=== PATIENT | female | born 1935 | race Caucasian/White ===

== ENCOUNTER 2021-11-17 11:06 | Inpatient (IN) | payer OTHER ==
--- OUTSIDE RECORDS SUMMARY | 2021-11-17 11:14 | XMS REPORT | Continuity of Care Document ---
:1935 Author Organization [facility] t Address [address] [place] [address] Dr. Wilson [address] [place] [id number] Care Team Providers Name Role Phone Gege HWANG Attending Clinician Unavailable Payers Payer Name Policy Type Policy Number Effective Date Expiration Date S pola MEDICARE PART A [id number] 2002 \T\ B 00:00:00 Problems This patient has no known problems. Allergies, Adverse Reactions, Alerts Allergy Allergy Status Severity Reaction(s) Onset Inactive Treating Comm ents Source Name Type Date Date Clinician NO KNOWN Drug Active [facility] ALLERGIE Class [facility] Medications This patient has no known medications. Procedures This patient has no known procedures. Encounters Start End Encounter Admission Attending Care Care Encounter Source Date/Time Date/Time Type Type Clinicians Facility Department ID 2020-12-29 2020-12-29 Outpatient [facility] [id number] [facility] 15:00:00 15:00:00 [id number] [facility] 2020-12-29 2020-12-29 Outpatient Diego HWANG [facility] [id number] [facility] 15:00:00 15:00:00 STEPHEN [facility] Results This patient has no known results.
[2021-11-17] MEDS ORDERED: NA CHLORIDE 0.9% 500 ML ONE (11:33)
--- NOTE | 2021-11-17 12:26 | RAD REPORT ---
EXAM DESCRIPTION: Wendie Single View11/17/2021 11:44 am CLINICAL HISTORY: cough COMPARISON: 2016 FINDINGS: Mild prominence of the interstitial pattern within the lungs bilaterally. The heart is mildly to moderately enlarged IMPRESSION: These findings may indicate mild CHF
[2021-11-17] MEDS ORDERED: MORPHINE 2 MG/ML SYR ONE (12:28)
[2021-11-17] MEDS ORDERED: ONDANSETRON 4 MG/2 ML VIAL ONE (12:28)
[2021-11-17 12:45] LABS: Absolute Lymphocytes (CBC) 0.3 K/uL (0.7-4.9); Hematocrit 39.6 % (36.0-45.0); Lymphocytes % 2.6 % (15.3-44.8); MPV 9.7 fL (7.6-11.3); RBC Red Blood Cell Count 4.25 M/uL (3.86-4.86)
[2021-11-17 13:01] LABS: Bilirubin Total 2.5 mg/dL (0.2-1.0); Protein, Total 8.4 g/dL (6.4-8.2)
[2021-11-17 13:03] LABS: Potassium 3.4 mmol/L (3.5-5.1)
[2021-11-17 13:15] LABS: Blood Morphology Comment NOT SEEN (NOT SEEN); Platelet Estimate ADEQ
[2021-11-17 13:38] LABS: SARS-COV-2 RT PCR NEGATIVE (NEGATIVE)
--- NOTE | 2021-11-17 13:46 | RAD REPORT ---
EXAM DESCRIPTION: CT - Abdomen Pelvis W Contrast - 11/17/2021 1:24 pm CLINICAL HISTORY: Abdominal pain COMPARISON: none. TECHNIQUE: Computed axial tomography of the abdomen pelvis was obtained. 100 cc Isovue-300 was admin istered intravenously. Oral contrast was not requested which limits evaluation of bowel. All CT scans are performed using dose optimization technique as appropriate and may include automated exposure control or mA/KV adjustment according to patient size. FINDINGS: The liver, spleen, pancreas adrenals unremarkable. Small renal cysts. Atherosclerotic disease. A 2 centimeter duodenal diverticulum. Diverticula stem from the colon without evidence of diverticulitis. No adnexal mass Borderline gallbladder distention IMPRESSION: Borderline gallbladder distention
--- NOTE | 2021-11-17 15:05 | RAD REPORT ---
EXAM DESCRIPTION: US - Abdomen Exam Limited - 11/17/2021 2:46 pm CLINICAL HISTORY: Abdominal pain. COMPARISON: None. FINDINGS: Borderline gallbladder distention. Gallbladder wall is not thickened. Two 3 millimeter ech ogenic structures appear adherent to the gallbladder wall. These probably represent polyps. Two additional echogenic structures within the gallbladder which appear mobile. No posterior shadowing is seen. The biliary tree is normal caliber. IMPRESSION: Borderline gallbladder distention Two 3 millimeter echogenic structures appear adherent to the gallbladder wall. These probably represe nt polyps. Two additional small echogenic structures within the gallbladder may represent sludge or stones which did not shadow secondary to a combination of their small size and technical factors
[2021-11-17 15:53] LABS: Urine Blood 1+ (Negative); Urine Glucose Negative (Negative); Urine Protein 1+ (Negative); Urine Specific Gravity <=1.005 (1.005-1.030); Urine pH 5.5 (5.0-7.0)
[2021-11-17 15:57] LABS: Troponin High Sensitivity 9.2 pg/mL (<58.9)
--- NOTE | 2021-11-17 15:57 | EDPHYS ---
Physician Documentation [facility] Name: Lena Martínez Age: 86 yrs Sex: Female : 1935 Arrival Date: 11/17/2021 Time: 11:12 Bed 16 Private MD: ED Physician Azam Torres HPI: 11/17 11:22 This 86 yrs old Female presents to ER via EMS with complaints of Fever, Vomiting. rn 11:22 The patient reports fever, not measured (subjective). Onset: The symptoms/episode rn began/occurred yesterday. Modifying factors: there are no obvious modifying factors. Associated signs and symptoms: Pertinent positives: chills, cough, nausea, shortness of breath, vomiting. Severity of symptoms: At their worst the symptoms were mild in the emergency department the symptoms are unchanged. The patient has not experienced similar symptoms in the past. The patient has not recently seen a physician. Patient reports not feeling well for the last 2 days, positive fever, threw up once today, positive shortness of breath. No abdominal pain. No chest pain.. Historical: - Allergies: 11:14 Sulfa (Sulfonamide Antibiotics); bp - PMHx: 11:14 Atrial fibrillation; bp - Immunization history:: Client reports receiving the 2nd dose of the Covid vaccine. - Social history:: Smoking status: Patient denies any tobacco usage or history of. - Family history:: not pertinent. - Hospitalizations: : No recent hospitalization is reported. ROS: 11:22 Constitutional: Positive for fever Eyes: Negative for injury, pain, redness, and shift supervisor rn, Neck: Negative for injury, pain, and swelling, Cardiovascular: Negative for chest pain, palpitations, and edema, Respiratory: Positive for cough and shortness of breath Abdomen/GI: Negative for abdominal pain, positive for nausea and vomiting x1 Back: Negative for injury and pain, : Negative for injury, bleeding, discharge, and swelling, MS/Extremity: Negative for injury and deformity, Skin: Negative for injury, rash, and discoloration, Neuro: Negative for headache, numbness, tingling, and seizure. Exam: 11:22 Constitutional: This is a well developed, well nourished patient who is awake, alert, rn and in no acute distress. Head/Face: Normocephalic, atraumatic. Eyes: Periorbital areas with no swelling, redness, or edema. Cardiovascular: Tachycardic, irregular. No pulse deficits. Respiratory: Mild tachypnea, no retractions or nasal flaring. Abdomen/GI: Soft, non-tender, nondistended Skin: Warm, dry MS/ Extremity: Pulses equal, no cyanosis. Neurovascular intact. Full, normal range of motion. Neuro: Awake and alert, GCS 15 15:59 ECG was reviewed by the Attending Physician. rn Vital Signs: 11:12 BP 149 / 90; Pulse 100; Resp 20; Temp 100.7; Pulse Ox 90% on R/A; bp 11:20 BP 182 / 89; Pulse 122; Resp 18; Temp 98.6; Pulse Ox 98% ; Pain 0/10; cb5 12:14 BP 159 / 72; Pulse 112; Resp 18; Temp 98.6; Pain 3/10; cb5 14:05 BP 144 / 64; Pulse 113; Resp 16; Pulse Ox 97% ; Pain 0/10; cb5 MDM: 11:15 Patient medically screened. rn 15:43 Differential diagnosis: viral Infection, bacterial infection, URI, bronchitis, rn pneumonia UTI, acalculous cholecystitis, pulmonary edema, CHF, afib with RVR. Data reviewed: vital signs, nurses notes, lab test result(s), EKG, radiologic studies, CT scan, plain films, ultrasound, and as a result, I will admit patient. Counseling: I had a detailed discussion with the patient and/or guardian regarding: the historical points, exam findings, and any diagnostic results supporting the discharge/admit diagnosis, lab results, radiology results, the need for further work-up and treatment in the hospital. Response to treatment: the patient's symptoms have mildly improved after treatment, and as a result, I will admit patient. Admission orders: after a detailed discussion of the patient's condition and case, the admit orders are written by me. ED course: Will admit to Dr. Torres for further care and w/u. CT and u/s shows mild gallbladder distension but no PCF or definitive stones. Repeat exam still neg for abd tenderness, neg colunga. Will admit for Afib/RVR with mild CHF. Has elevated lactate and procalcitonin, will also obtain surgical consultation in hospital. . 11/17 11:18 Order name: Basic Metabolic Panel; Complete Time: 14:08 11/17 11:18 Order name: CBC with Diff; Complete Time: 14: 11/17 11:18 Order name: Hepatic Function; Complete Time: 14: 11/17 11:18 Order name: Lipase; Complete Time: 14: 11/17 11:18 Order name: COVID-19/FLU A+B (Document "Date of Onset" if Symptomatic); Complete Time: rn 14:11/17 11:18 Order name: Procalcitonin; Complete Time: 14: rn 11/17 11:18 Order name: Lactate; Complete Time: 14: 11/17 11:18 Order name: Blood Culture Adult (2) rn 11/17 11:18 Order name: Urine Culture rn 11/17 11:18 Order name: Urine Microscopic Only; Complete Time: 16: 11/17 13:15 Order name: Manual Differential; Complete Time: 14: [facility] 11/17 15:33 Order name: Troponin High Sensitivity; Complete Time: 16: 11/17 15:33 Order name: BNP; Complete Time: 16: 11/17 15:53 Order name: Urine Dipstick-Ancillary; Complete Time: 16: [facility] 11/17 11:18 Order name: IV Saline Lock; Complete Time: 12: 11/17 11:18 Order name: Labs collected and sent; Complete Time: 12: 11/17 11:18 Order name: XRAY Chest (1 view); Complete Time: 14: 11/17 11:18 Order name: O2 Per Protocol; Complete Time: : rn 11/17 11:18 Order name: Cardiac monitoring; Complete Time: : rn 11/17 11:18 Order name: Urine Dipstick-Ancillary (obtain specimen); Complete Time: 15:43 rn 11/17 12:26 Order name: CT Abd/Pelvis - IV Contrast Only; Complete Time: 14: 11/17 14:10 Order name: US Abdomen Limited; Complete Time: 15: 11/17 15:17 Order name: EKG; Complete Time: 15:18 11/17 16:47 Order name: CONS Physician Consult [facility] 11/17 12:31 Order name: Labs - recollect needed: recollect lactic / bagged incorrectly/ spilled eb everywhere and timed out.; Complete Time: 13:16 11/17 15:17 Order name: EKG - Nurse/Tech; Complete Time: 15:43 rn EC:59 Rate is 109 beats/min. Rhythm is irregularly irregular. QRS [place] is Normal. NV interval rn is normal. QRS interval is normal. QT interval is normal. No Q waves. T waves are Normal in leads II, V3, V4, V5, V6. No ST changes noted. Clinical impression: Atrial Fibrillation. Interpreted by me. Reviewed by me. Administered Medications: 11:45 Drug: NS 0.9% 500 ml Route: IV; Rate: bolus; Site: right antecubital; cb5 12:30 Drug: Zofran (Ondansetron) 4 mg Route: IVP; Site: right antecubital; cb5 12:30 Drug: morphine 2 mg Route: IVP; Site: right antecubital; cb5 16:22 Drug: Metoprolol TARTRATE 50 mg Route: PO; cb5 Disposition Summary: 11/17/21 15:56 Hospitalization Ordered Hospitalization Status: Inpatient Admission rn Provider: Jw Torres rn Location: Telemetry/MedSurg (Inpatient) rn Condition: Stable rn Problem: new rn Symptoms: have improved rn Bed/Room Type: Standard rn Room Assignment: 210(11/17/21 16:50) eb Diagnosis - Persistent atrial fibrillation - With RVR rn - Dyspnea, unspecified rn - UTI/ Urinary tract infection, site not specified rn - Hypoxemia rn Forms: - Medication Reconciliation Form rn - SBAR form rn Signatures: Dispatcher [employer] EDMS Azam Torres MD MD rn Peltier, Brian RN RN Mallorie Brooke Colleen, RN RN cb5 Corrections: (The following items were deleted from the chart) 15:34 11:22 Constitutional: This is a well developed, well nourished patient who is awake, rn alert, and in no acute distress. Head/Face: Normocephalic, atraumatic. Eyes: Periorbital areas with no swelling, redness, or edema. Cardiovascular: Tachycardic, regular. No pulse deficits. Respiratory: Mild tachypnea, no retractions or nasal flaring. Abdomen/GI: Soft, non-tender, nondistended Skin: Warm, dry MS/ Extremity: Pulses equal, no cyanosis. Neurovascular intact. Full, normal range of motion. Neuro: Awake and alert, GCS 15 rn 16:50 15:56 rn eb
--- NOTE | 2021-11-17 15:57 | ER ---
Nurse's Notes [facility] Name: Lena Martínez Age: 86 yrs Sex: Female : 1935 Arrival Date: 11/17/2021 Time: 11:12 Bed 16 Private MD: Diagnosis: Persistent atrial fibrillation-With RVR;Dyspnea, unspecified;UTI/ Urinary tract infection, site not specified;Hypoxemia Presentation: 11/17 11:12 Chief complaint: EMS states: FEVER, MALAISE AND VOMITING. Coronavirus screen: fever, bp vomiting. Ebola Screen: No symptoms or risks identified at this time. Initial Sepsis Screen: Does the patient meet any 2 criteria? HR > 90 bpm. No. Patient's initial sepsis screen is negative. Does the patient have a suspected source of infection? No. Patient's initial sepsis screen is negative. Risk Assessment: Do you want to hurt yourself or someone else? Patient reports no desire to harm self or others. Onset of symptoms was November 17, 2021. Care prior to arrival: Medication(s) given: Phenergan, 12.5 mg, IV initiated. 22 GA, in the left hand. 11:12 Method Of Arrival: EMS: [facility] bp 11:12 Acuity: АННА 3 bp Triage Assessment: 11:14 General: Appears in no apparent distress. comfortable, Behavior is cooperative, bp appropriate for age, anxious. Pain: Complains of pain in head. EENT: No deficits noted. Neuro: Level of Consciousness is awake, alert, obeys commands, Oriented to Appropriate for age. Cardiovascular: Rhythm is atrial fibrillation. Respiratory: Reports shortness of breath. GI: Reports nausea, vomiting. : No signs and/or symptoms were reported regarding the genitourinary system. Derm: No deficits noted. Musculoskeletal: No deficits noted. Historical: - Allergies: 11:14 Sulfa (Sulfonamide Antibiotics); bp - PMHx: 11:14 Atrial fibrillation; bp - Immunization history:: Client reports receiving the 2nd dose of the Covid vaccine. - Social history:: Smoking status: Patient denies any tobacco usage or history of. - Family history:: not pertinent. - Hospitalizations: : No recent hospitalization is reported. Screenin:20 Abuse screen: Denies injuries from another. Has been threatened or abused. Nutritional bp screening: No deficits noted. Tuberculosis screening: No symptoms or risk factors identified. Fall Risk None identified. 11:21 Abuse screen: Denies threats or abuse. Denies injuries from another. Nutritional cb5 screening: No deficits noted. Tuberculosis screening: No symptoms or risk factors identified. Assessment: 11:20 General: SEE TRIAGE NOTE. bp 12:30 Reassessment: pt informed nurse she is having back pain, 06/05, informed M.D. See new cb5 orders. 13:00 Pain: Complains of pain in back Pain currently is 2 out of 10 on a pain scale. cb5 Alleviated by pt responded well to morphine. 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 cb5 15:05 Reassessment: Patient denies pain at this time. Patient states feeling better. cb5 17:02 Reassessment: Patient denies pain at this time. cb5 Vital Signs: 11:12 BP 149 / 90; Pulse 100; Resp 20; Temp 100.7; Pulse Ox 90% on R/A; bp 11:20 BP 182 / 89; Pulse 122; Resp 18; Temp 98.6; Pulse Ox 98% ; Pain 0/10; cb5 12:14 BP 159 / 72; Pulse 112; Resp 18; Temp 98.6; Pain 3/10; cb5 14:05 BP 144 / 64; Pulse 113; Resp 16; Pulse Ox 97% ; Pain 0/10; cb5 ED Course: 11:12 Patient arrived in ED. bp 11:14 Triage completed. bp 11:14 Arm band placed on. bp 11:15 Azam Torres MD is Attending Physician. rn 11:19 Margot Vogel, ELLIS is Primary Nurse. cb5 11:20 Patient has correct armband on for positive identification. Bed in low position. Call bp light in reach. Side rails up X2. Adult w/ patient. 11:20 Maintain EMS IV. Dressing intact. Gauge \\T\\ site: 22 G R HAND. bp 11:22 Patient has correct armband on for positive identification. Bed in low position. Call cb5 light in reach. Side rails up X2. 11:22 No provider procedures requiring assistance completed. cb5 11:44 XRAY Chest (1 view) In Process Unspecified. EDMS 12:08 Lipase Sent. cb5 12:08 Hepatic Function Sent. cb5 12:08 CBC with Diff Sent. cb5 12:09 Basic Metabolic Panel Sent. cb5 12:09 COVID-19/FLU A+B (Document "Date of Onset" if Symptomatic) Sent. cb5 12:09 Lactate Sent. cb5 12:09 Procalcitonin Sent. cb5 12:09 Blood Culture Adult (2) Sent. cb5 13:24 CT Abd/Pelvis - IV Contrast Only In Process Unspecified. EDMS 14:46 US Abdomen Limited In Process Unspecified. EDMS 15:43 Urine Culture Sent. cb5 15:43 Urine Microscopic Only Sent. cb5 15:54 BNP Sent. cb5 15:54 Troponin High Sensitivity Sent. cb5 15:56 Jw Torres MD is Hospitalizing Provider. rn 17:03 Report given to Pardeep Ramirez cb5 Administered Medications: 11:45 Drug: NS 0.9% 500 ml Route: IV; Rate: bolus; Site: right antecubital; cb5 12:30 Drug: Zofran (Ondansetron) 4 mg Route: IVP; Site: right antecubital; cb5 12:30 Drug: morphine 2 mg Route: IVP; Site: right antecubital; cb5 16:22 Drug: Metoprolol TARTRATE 50 mg Route: PO; cb5 Outcome: 15:56 Decision to Hospitalize by Provider. rn 17:16 Patient left the ED. cb5 Signatures: Dispatcher [employer] Azam Bonilla MD MD rn Peltier, Brian, RN RN bp Boman, Colleen, RN RN cb5
[2021-11-17 16:05] LABS: Urine Bacteria >50 /HPF (<20); Urine RBC <5 /HPF (NONE SEEN)
[2021-11-17] MEDS ORDERED: METOPROLOL TAR 50 MG TAB ONE (16:23)
--- NOTE | 2021-11-17 16:57 | P.HP ---
Certification for Inpatient Patient admitted to: Inpatient With expected LOS: >2 Midnights Practitioner: I am a practitioner with admitting privileges, knowledge of patient current condition, hospital course, and medical plan of care. Services: Services provided to patient in accordance with Admission requirements found in Title 42 Section 412.3 of the Code of Federal Regulations Patient History Date of Service: 11/17/21 Reason for admission: afib rvr, nausea, fever History of Present Illness: 86yo F, PMH: Afib on eliquis, hypothyroidism, hypertension presents to the ED due to sudden onset of chills, shakes, fever this morning. She states she went to the bathroom due to nausea and she threw up, associated with some pain between her shoulder blades/slight on the right side. She was also feeling more short of breath/dyspneic on exertion. They called EMS, and as they were putting her on the stretcher she had another episode of emesis, states this was greenish in color. Denies constipation, denies diarrhea. She typically has 34 bowel movements a day. She has been a little bit more short of breath/dyspneic on exertion over the last 3-4 days as well. She states it is typical for her, that after walking for "a while" her A. fib acts up and she gets short of breath and has to sit down and rest. She denies any dysuria, no increased urinary frequency, no cloudy or foul- smelling urine. She reports a history of recurrent UTIs, last one over 2 years ago. She also reports she has been told she may have some CHF component in the past, but is unsure. In the ED, she was noted to be febrile to 100.7, A. fib with RVR up to 130s, with borderline hypertension. 90% on room air. Troponin negative, BNP slightly elevated, CXR with mild bilateral pulmonary opacities, lactic acidosis, and elevated procalcitonin. Mildly elevated bilirubin, distended gallbladder on CT and ultrasound, without other features of cholecystitis. No leukocytosis. UA was sent and nitrite/leukoesterase positive, micro pending. ED physician requested admission for further management/evaluation of her A. fib, possible UTI, and gallbladder. Allergies pregabalin [From Lyrica] Allergy (Verified 12/06/11 08:37) drooping in face area Sulfa (Sulfonamide Antibiotics) [Sulfa(Sulfonamide Antibiotics)] Allergy (Verified 12/06/11 08:35) joint/tongue swelling - Past Medical/Surgical History -: A. fib on Eliquis -: Hypothyroid -: Hypertension Past Surgical History: Unable to obtain - Family History Mother -: Cancer (Lung) - Social History Smoking Status: Never smoker Alcohol use: No Place of Residence: Home Review of Systems 10-point ROS is otherwise unremarkable Physical Examination - Physical Exam General: Alert, In no apparent distress, Oriented x3 HEENT: Mucous membr. moist/pink, Sclerae nonicteric Respiratory: Diminished (At bases bilaterally, otherwise clear) Cardiovascular: Edema (Trace bilateral pedal edema), Irregular heart rate/rhythm Gastrointestinal: Soft and benign, Non-distended, No tenderness Musculoskeletal: No erythema, No tenderness Integumentary: No significant lesion Neurological: Normal speech, Normal strength at 5/5 x4 extr, Normal affect - Studies Laboratory Data (last 24 hrs) 11/17/21 11:45: WBC 9.90, Hgb 13.0, Hct 39.6, Plt Count 236 11/17/21 11:45: Sodium 135 L, Potassium 3.4 L, BUN 15, Creatinine 1.19, Glucose 128 H, Total Bilirubin 2.5 H, AST 22, ALT 27, Alkaline Phosphatase 93, Lipase 67 L Assessment and Plan - Advance Directives Does patient have a Living Will: Yes Does patient have a Durable POA for Healthcare: Yes Physician Review Additional Text: Problem List Distended gallbladder Bacteruria, possible UTI Lactic acidosis Afib RVR, chronic afib on eliquis Hypothyroid HTN fever, afib, vomiting x2 (with greenish emesis) distended gallbladder on U/S and CT, no RUQ tenderness on exam, did have R shoulder blade / between shoulder blade pain mild elevated tbili consult general surgery Urine with bacteruria and nitrite/leuk est positive, concerning for UTI. patient denies any symptoms, but has h/o frequent UTIs in the past, has been >2 yrs since last one Zosyn to cover abdominal and urine pathogens patient didn't take home meds this morning, restart home metoprolol once confirmed, IV metop as needed Cardiology consulted full liquids tonight, ADAT continue home eliquis tonight check thyroid function VTE: eliquis Code: DNR Dispo: anticipate dc home in ~2 days Time Spent Managing Pts Care (In Minutes): 60
[2021-11-17] MEDS ORDERED: ONDANSETRON 4 MG/2 ML VIAL IV PRN (17:40)
[2021-11-17 17:42] VITALS: BMI 30.4
[2021-11-17] MEDS: PIPER TAZO 3.375 GM in NA CHLORIDE 0.9% 100 ML IV SCH (18:36)
[2021-11-17] MEDS ORDERED: METOPROLOL TAR 50 MG TAB PO SCH (21:00)
--- NOTE | 2021-11-17 21:03 | P.CNS ---
Date of Consult: 11/17/21 PC: This 36-year-old female presented to the emergency room with severe abdominal pain nausea and vomiting for diagnosis and treatment. HPC: Patient has been experiencing abdominal pain since earlier today. Describes it as extremely severe located in her back. Associated with green vomiting. States she has not felt that well this last week or so. PSHx: Lung surgery for granuloma PMHx: Atrial fibrillation Social Hx: Allergic to sulfa Sys R: No cough, wheeze, but has had some shortness of breath. Finds that she is not able to walk as far as she used to. Appetite has not been that good this last month or so. No change in bowel habit. At the current time however she feels fine with no pain as were talking. O/E: Awake alert vital signs are stable, afebrile and comfortable at the moment HEENT: Nonicteric Chest: Air entry equal bilaterally Abd: Soft nontender no masses no guarding or rebound [place]: Intact Data: Has possible gallstones seen on ultrasound. Also duodenal diverticuli. Impression: Episode of probable biliary colic appears to have resolved for now Plan: The patient is stable at the moment. She is feeling much improved since she has been here. She will most likely be discharged soon. Would recommend cardiac clearance, and visit with a radio equipment repairer [this is the patient's request] as well as a check-in with Dr. Gao. Should she decide to have surgery at a later date we will be glad to provide that service. She says she will check in with me in about a month to let me know how she is doing.
[2021-11-17] MEDS: APIXABAN 2.5 MG TABLET PO SCH (21:54)
[2021-11-18] MEDS: PIPER TAZO 3.375 GM in NA CHLORIDE 0.9% 100 ML IV SCH ×3 (00:37→18:58)
--- NOTE | 2021-11-18 05:55 | P.PN ---
Date of Service: 11/18/21 Subjective: no acute events fatigued, feels slightly better Blood cultures positive for gram-negative rods Upper back pain resolved HR: 90s-115s overnight ROS: 10 point ROS as noted above, otherwise negative Physical exam General: Alert, fatigued appearing, Oriented x3 HEENT: Mucous membr. moist/pink, Sclerae nonicteric Respiratory: Diminished (At bases bilaterally, otherwise clear) Cardiovascular: Irregular heart rate/rhythm, no edema Gastrointestinal: Soft and benign, Non-distended, No tenderness Musculoskeletal: No erythema, No tenderness Problem List Sepsis, without severe sepsis/shock secondary to UTI, GNR bacteremia Afib RVR, chronic afib on eliquis Distended gallbladder, possible episode of biliary colic Hypothyroid HTN fever, afib, vomiting x2 (with greenish emesis) distended gallbladder on U/S and CT, no RUQ tenderness on exam, did have R shoulder blade / between shoulder blade pain mild elevated tbili empirically on Zosyn to cover abdominal and urine pathogens consulted general surgery, possible episodes of biliary colic, f/u outpatient Patient denied urine symptoms, however urine with bacteriuria, and preliminary blood showing gram-negative rods A. fib with better rate control, continue home metoprolol Cardiology consulted continue home eliquis VTE: eliquis Code: DNR Dispo: anticipate dc home in ~2 days Time Spent Managing Pts Care (In Minutes): 35
[2021-11-18] MEDS ORDERED: METOPROLOL XL 100 MG TAB PO SCH (06:00)
[2021-11-18 06:30] LABS: Absolute Lymphocytes (CBC) 0.7 K/uL (0.7-4.9); Hematocrit 35.6 % (36.0-45.0); Lymphocytes % 5.4 % (15.3-44.8); MPV 9.3 fL (7.6-11.3); RBC Red Blood Cell Count 3.77 M/uL (3.86-4.86)
[2021-11-18] MEDS: LEVOTHYROXINE SOD 0.1 MG TAB PO SCH (06:30)
[2021-11-18] MEDS: METOPROLOL XL 100 MG TAB PO SCH (06:30)
[2021-11-18 06:47] LABS: Albumin 2.4 g/dL (3.4-5.0); Bilirubin Total 1.4 mg/dL (0.2-1.0); Magnesium 2.4 mg/dL (1.8-2.4); Potassium 3.4 mmol/L (3.5-5.1); Thyroid Stimulating Hormone 0.928 uIU/mL (0.360-3.740)
[2021-11-18] MEDS ORDERED: POTASSIUM CL SA 10 MEQ TAB PO ONE (06:57)
[2021-11-18] MEDS: APIXABAN 2.5 MG TABLET PO SCH ×2 (09:00→20:27)
[2021-11-18] MEDS: NA CHLORIDE 0.9% 1,000 ML IV SCH ×2 (10:24→20:28)
[2021-11-19] MEDS: PIPER TAZO 3.375 GM in NA CHLORIDE 0.9% 100 ML IV SCH ×3 (02:32→16:05)
[2021-11-19 05:46] LABS: Absolute Lymphocytes (CBC) 0.7 K/uL (0.7-4.9); Hematocrit 32.4 % (36.0-45.0); MPV 9.2 fL (7.6-11.3); RBC Red Blood Cell Count 3.45 M/uL (3.86-4.86)
--- NOTE | 2021-11-19 06:06 | P.PN ---
Date of Service: 11/19/21 Subjective: Improving, denies any back pain Feeling better Still minimal appetite Heart rate improved Reports some shortness of breath overnight, and states she has been short of breath even before this episode ROS: 10 point ROS as noted above, otherwise negative Physical exam General: Alert, fatigued appearing, Oriented x3 HEENT: Mucous membr. moist/pink, Sclerae nonicteric Respiratory: Diminished (At bases bilaterally, otherwise clear) Cardiovascular: Irregular heart rate/rhythm, no edema Gastrointestinal: Soft and benign, Non-distended, No tenderness Musculoskeletal: No erythema, No tenderness Problem List Sepsis, without severe sepsis/shock secondary to UTI, GNR bacteremia Afib RVR, chronic afib on eliquis Distended gallbladder, possible episode of biliary colic Hypothyroid HTN fever, afib, vomiting x2 (with greenish emesis) prior to admission, with mild elevated tbili distended gallbladder on U/S and CT, no RUQ tenderness on exam, did have R shoulder blade / between shoulder blade pain consulted general surgery, possible episodes of biliary colic, f/u outpatient empirically on Zosyn to cover abdominal and urine pathogens Patient denied urine symptoms, however urine with bacteriuria, and preliminary blood showing gram-negative rods, ID consulted A. fib with better rate control, continue home metoprolol Cardiology consulted - continue home metoprolol/eliquis VTE: eliquis Code: DNR Dispo: anticipate dc home in ~1-2 days may need PICC IV antibiotics on discharge Time Spent Managing Pts Care (In Minutes): 35
[2021-11-19] MEDS: LEVOTHYROXINE SOD 0.1 MG TAB PO SCH (06:07)
[2021-11-19 06:11] LABS: Magnesium 2.4 mg/dL (1.8-2.4); Potassium 3.8 mmol/L (3.5-5.1)
[2021-11-19] MEDS ORDERED: POTASSIUM CL SA 10 MEQ TAB PO ONE (09:00)
[2021-11-19] MEDS: APIXABAN 2.5 MG TABLET PO SCH ×2 (09:58→21:14)
[2021-11-19] MEDS: METOPROLOL XL 100 MG TAB PO SCH (09:58)
[2021-11-19] MEDS: NA CHLORIDE 0.9% 1,000 ML IV SCH (10:04)
--- NOTE | 2021-11-19 11:15 | CON ---
Date of Consultation: 11/19/2021 Reason For Consultation: Rapid atrial fibrillation. Subjective: Ms. Martíenz is 86. She is very well known to me from previous office visits. She has a h istory of hypertension, chronic atrial fibrillation, hypothyroidism. She does take Eliquis, metoprol ol, Lotrel, Synthroid at home. Came in with UTI, was found to have gram-negative bacteremia, atrial fibrillation initially was rapid rate 130 after treatment for her UTI. She is now running between 90 and has no cardiac symptoms. Past Medical History: As stated above. Allergies: SHE IS ALLERGIC TO SULFA AND NEURONTIN. Review of Systems: Negative. Social History: Negative. Family History: Negative. Medications: Listed earlier. Physical Examination: General: She is pleasant, alert and oriented x3. No acute distress. No symptoms. Vital Signs: Atrial fibrillation, rate of 104. Vital signs are otherwise stable. She is afebrile. HEENT: Negative. Neck: Supple with no bruit. Chest: Clear to auscultation and percussion. Cardiac: Revealed atrial fibrillation. Abdomen: Benign. Extremities: Revealed no clubbing, cyanosis, or edema. Diagnostic Data: Her EKG showed rapid atrial fibrillation. Creatinine is 1.33, hemoglobin 10.4, pot assium 3.8. BNP was 5685. Urinalysis is positive for UTI. Impression And Plan: 1.Chronic atrial fibrillation with rapid response now because of the infection. Continue beta-block ers. Continue Eliquis. Continue urinary tract infection treatment. 2.Hypertension, well controlled, on metoprolol and Lotrel. 3.Hypothyroidism, controlled, on Synthroid. 4.Mild anemia. 5.Mild renal insufficiency. 6.Elevated BNP secondary to demand ischemia from her urinary tract infection and atrial fibrillation . If her heart rate becomes fast, I will give IV metoprolol as needed or IV digoxin as needed. Othe rwise, no change in therapy. The case was discussed with Dr. Torres. No need for cardiac workup at t his point. I will see her in the office when she goes home. BYRON/LORELEI Voice ID: [id number] Report ID: [id number]
--- NOTE | 2021-11-19 18:51 | P.CNS ---
Date of Consult: 11/19/21 Chief Complaint: afib rvr, nausea, fever History of Present Illness: Is a 86-year-old female with a past medical history of A. fib on Eliquis, hypothyroidism, hypertension who presented to the emergency room secondary to feeling unwell with chills, shakes, and fever reported that morning. Patient states that she went to the bathroom due to nausea and also reported some pain between her shoulder blades/right side. Patient states that she was also feeling shortness of breath/dyspnea on exertion. Currently on 2 L oxygen via nasal cannula. Blood cultures taken on 11/17 grew gram-negative rods in 4 out of 4 bottles, awaiting full culture report. Urine culture obtained on 11/17 growing E. coli. Repeat blood cultures obtained on 11/18 show no growth at [address] abdomen pelvis showed borderline gallbladder distention, no other acute renal pathology noted. Chest x-ray showed mild congestive heart failure pattern. 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 She also states that she was diagnosed wi th COPD. She currently denies nausea/vomiting/diarrhea/shortness of breath/chest pain. Allergies pregabalin [From Lyrica] Allergy (Verified 12/06/11 08:37) drooping in face area Sulfa (Sulfonamide Antibiotics) [Sulfa(Sulfonamide Antibiotics)] Allergy (Verified 12/06/11 08:35) joint/tongue swelling Home Medications: Amlodipine Besylate/Benazepril [Amlodipine-Benazepril 10-20 mg] 1 tab PO DAILY 11/17/21 Apixaban [Eliquis] 2.5 tab PO BID 11/17/21 Levothyroxine Sodium 1 tab PO DAILY 11/17/21 Metoprolol Succinate 1 tab PO DAILY 11/17/21 - Past Medical/Surgical History -: A. fib on Eliquis -: Hypothyroid -: Hypertension -: lung lobectomy - Left lower lobe - Family History Mother Medical History: Cancer - Social History Alcohol use: No Place of Residence: Home Review of Systems 10-point ROS is otherwise unremarkable Physical Examination Temp Pulse Resp BP Pulse Ox 97.7 F 104 H 18 142/71 H 94 11/19/21 16:00 11/19/21 16:00 11/19/21 16:00 11/19/21 16:00 11/19/21 16:00 General: Alert, In no apparent distress, Oriented x3 HEENT: Normocephalic Neck: 2+ carotid pulse no bruit Respiratory: Clear to auscultation bilaterally, Normal air movement Cardiovascular: No edema, Irregular heart rate/rhythm Gastrointestinal: Normal bowel sounds, Soft and benign Conclusions/Impression: Antibiotics Zosyn Start: 11/17 Assessment/plan Urosepsis Blood cultures obtained 11/17 grew gram-negative rods in 4-4 bottles, source of infection urine. Urine culture growing E. coli. Recommend treating with IV antibiotics for 3 to 4 days then de-escalating to oral antibiotic to complete a total antibiotic duration of 7 days. Kassy rebolledo CHF COPD Hypothyroidism -Medical management per primary team Plan of care discussed with Dr. Ruddy Garcia for consultation.
[2021-11-19] MEDS ORDERED: PNEUMOCOCCAL VACCINE 0.5 ML IMVAC ONE (20:00)
[2021-11-19] MEDS ORDERED: INFLUENZA VACCINE (for 6+ mo) 0.5 ML DOSE IMVAC ONE (20:00)
[2021-11-20] MEDS: PIPER TAZO 3.375 GM in NA CHLORIDE 0.9% 100 ML IV SCH ×3 (00:54→16:09)
[2021-11-20 05:38] LABS: Absolute Lymphocytes (CBC) 0.9 K/uL (0.7-4.9); Hematocrit 32.2 % (36.0-45.0); Lymphocytes % 12.7 % (15.3-44.8); MPV 9.2 fL (7.6-11.3); RBC Red Blood Cell Count 3.43 M/uL (3.86-4.86)
[2021-11-20 06:04] LABS: Potassium 3.8 mmol/L (3.5-5.1)
[2021-11-20] MEDS: LEVOTHYROXINE SOD 0.1 MG TAB PO SCH (06:04)
--- NOTE | 2021-11-20 07:24 | RAD REPORT ---
EXAM DESCRIPTION: RAD - Chest Single View - 11/20/2021 6:17 am CLINICAL HISTORY: SOB, hypoxia COMPARISON: Portable November 17 TECHNIQUE: AP portable chest image was obtained 11/20/2021 6:17 am . FINDINGS: Interstitial markings are prominent. There is some patchy airspace opacification is well. No new dense consolidation or mass seen. Lung parenchymal pattern is not clearly different from the an study. Heart size is prominent but not clearly different. Rotation accentuates the heart size and widens the mediastinum. Central vasculature is not clearly different. No pneumothorax or enlarging pleural effu tariq. Delete select IMPRESSION: Interstitial and patchy alveolar opacities primarily in the lower lung [place]. Pattern i s not clearly different from November 17. Cardiac silhouette is enlarged. Prominent vasculature noted. Pattern is stable when adjusting for rot ation artifact.
[2021-11-20] MEDS: METOPROLOL XL 100 MG TAB PO SCH (10:28)
[2021-11-20] MEDS: APIXABAN 2.5 MG TABLET PO SCH ×2 (10:28→21:24)
--- NOTE | 2021-11-20 11:06 | PN ---
Date of Progress Note: 11/20/2021 Ms. Corley was seen because of rapid atrial fibrillation, chronic atrial fibrillation. She is on beta -yassine. She is on Eliquis. She has UTI with gram-negative bacteremia that is being treated. Infe ctious Disease is involved. She has hypertension, mild anemia and mild renal insufficiency. Hyperte nsion that is well controlled. Slightly elevated BNP secondary to demand ischemia. Today her heart rate is only 80. She remains in atrial fibrillation. ID is seeing her. O2 saturation is 93% on 2 L . Her white count is 7.30. Again, continue present regimen. She is a do not resuscitate. No cardi ac workup necessary at this point. I will be available for questions if the need arises. BYRON/EVELYNL Voice ID: [id number] Report ID: [id number]
--- NOTE | 2021-11-20 11:42 | P.PN ---
Subjective Date of Service: 11/20/21 Chief Complaint: afib rvr, nausea, fever Seen and examined at bedside, denies nausea/vomiting/diarrhea. Review of Systems 10-point ROS is otherwise unremarkable Physical Examination - Vital Signs Temperature: 97.5 F Blood Pressure: 140/70 Pulse: 20 Respirations: 20 Pulse Ox (%): 96 - Studies Laboratory Last Values WBC 9.90 K/uL (4.3-10.9) 11/17/21 11:45 RBC 4.25 M/uL (3.86-4.86) 11/17/21 11:45 Hgb 13.0 g/dL (12.0-15.0) 11/17/21 11:45 Hct 39.6 % (36.0-45.0) 11/17/21 11:45 MCV 93.1 fL (80-100) 11/17/21 11:45 MCH 30.7 pg (27.0-35.0) 11/17/21 11:45 MCHC 32.9 g/dL (32.0-36.0) 11/17/21 11:45 RDW 15.6 % (12.1-15.2) H 11/17/21 11:45 Plt Count 236 K/uL (152-406) 11/17/21 11:45 MPV 9.7 fL (7.6-11.3) 11/17/21 11:45 Neutrophils % 96.1 % (41.7-73.7) H 11/17/21 11:45 Lymphocytes % 2.6 % (15.3-44.8) L 11/17/21 11:45 Monocytes % 1.0 % (3.3-12.3) L 11/17/21 11:45 Eosinophils % 0.0 % (0-4.4) 11/17/21 11:45 Basophils % 0.3 % (0-1.3) 11/17/21 11:45 Absolute Neutrophils 9.5 K/uL (1.8-8.0) H 11/17/21 11:45 Segmented Neutrophils 97 % (40-80) H 11/17/21 11:45 Absolute Lymphocytes 0.3 K/uL (0.7-4.9) L 11/17/21 11:45 Lymphocytes 2 % (15-42) L 11/17/21 11:45 Monocytes 1 % (0-10) 11/17/21 11:45 Absolute Monocytes 0.1 K/uL (0.1-1.3) 11/17/21 11:45 Absolute Eosinophils 0.0 K/uL (0-0.5) 11/17/21 11:45 Absolute Basophils 0.0 K/uL (0-0.5) 11/17/21 11:45 Platelet Estimate Adeq 11/17/21 11:45 Clumped Platelets Few 11/17/21 11:45 Morphology Comment Not seen (NOT SEEN) 11/17/21 11:45 Sodium 135 mmol/L (136-145) L 11/17/21 11:45 Potassium 3.4 mmol/L (3.5-5.1) L 11/17/21 11:45 Chloride 105 mmol/L (98-107) 11/17/21 11:45 Carbon Dioxide 21 mmol/L (21-32) 11/17/21 11:45 BUN 15 mg/dL (7-18) 11/17/21 11:45 Creatinine 1.19 mg/dL (0.55-1.3) 11/17/21 11:45 Estimated GFR 43 mL/min (=/>90) L 11/17/21 11:45 Glucose 128 mg/dL (74-106) H 11/17/21 11:45 Lactic Acid 3.8 mmol/L (0.4-2.0) H 11/17/21 12:42 Calcium 8.6 mg/dL (8.5-10.1) 11/17/21 11:45 Total Bilirubin 2.5 mg/dL (0.2-1.0) H 11/17/21 11:45 Direct Bilirubin 1.0 mg/dL (0-0.2) H 11/17/21 11:45 AST 22 U/L (15-37) 11/17/21 11:45 ALT 27 U/L (12-78) 11/17/21 11:45 Alkaline Phosphatase 93 U/L (45-117) 11/17/21 11:45 Troponin I High Sens 9.20 pg/mL (<58.9) 11/17/21 11:45 NT-Pro-B Natriuret Pep 5685 pg/mL (<450) H 11/17/21 11:45 Serum Total Protein 8.4 g/dL (6.4-8.2) H 11/17/21 11:45 Albumin 3.0 g/dL (3.4-5.0) L 11/17/21 11:45 Globulin 5.4 g/dL (2.3-3.5) H 11/17/21 11:45 Albumin/Globulin Ratio 0.6 (1.1-1.8) L 11/17/21 11:45 Lipase 67 U/L (73-393) L 11/17/21 11:45 Procalcitonin 0.80 ng/mL (<0.050) H 11/17/21 11:45 Urine pH 5.5 (5.0-7.0) 11/17/21 15:50 Ur Specific [place] <=1.005 (1.005-1.030) 11/17/21 15:50 Glucose (UA)(Auto) Negative (Negative) 11/17/21 15:50 Urine Ketones Negative (Negative) 11/17/21 15:50 Urine Blood 1+ (Negative) H 11/17/21 15:50 Urine Nitrite Positive (Negative) H 11/17/21 15:50 Ur Leukocyte Esterase 1+ (Negative) H 11/17/21 15:50 Urine RBC <5 /HPF (NONE SEEN) 11/17/21 15:40 Urine WBC >50 /HPF (<5) H 11/17/21 15:40 Ur Squamous Epith Cells <5 /HPF (NONE SEEN) 11/17/21 15:40 Urine Bacteria >50 /HPF (<20) H 11/17/21 15:40 Urine Culture Reflexed Reflexed 11/17/21 15:40 Urine Total Protein 1+ (Negative) H 11/17/21 15:50 Influenza Type A RNA Negative (NEGATIVE) 11/17/21 12:00 Influenza Type B RNA Negative (NEGATIVE) 11/17/21 12:00 SARS-CoV-2 RNA (RT-PCR) Negative (NEGATIVE) 11/17/21 12:00 Microbiology Data (last 24 hrs): 11/17/21 12:05 Blood - Blood Aerobic Blood Culture - Final Gram Neg Gustavo Escherichia Coli 11/17/21 12:05 Blood - Blood Blood Culture Gram Stain - Final 11/17/21 12:05 Blood - Blood Anaerobic Blood Culture - Final Gram Neg Gustavo Escherichia Coli 11/17/21 12:05 Blood - Blood Gram Stain - Final 11/17/21 11:45 Blood - Blood Aerobic Blood Culture - Final Escherichia Coli 11/17/21 11:45 Blood - Blood Blood Culture Gram Stain - Final 11/17/21 11:45 Blood - Blood Anaerobic Blood Culture - Final Escherichia Coli 11/17/21 11:45 Blood - Blood Gram Stain - Final 11/17/21 15:40 Clean Catch Urine [place] Count - Final >100,000 CFU/ML. 11/17/21 15:40 Clean Catch Urine - Final Escherichia Coli Assessment And Plan - Plan Physical exam: General: Alert, In no apparent distress, Oriented x3 HEENT: Normocephalic Neck: 2+ carotid pulse no bruit Respiratory: Clear to auscultation bilaterally, Normal air movement Cardiovascular: No edema, Irregular heart rate/rhythm Gastrointestinal: Normal bowel sounds, Soft and benign Conclusions/Impression: Antibiotics Zosyn Start: 11/17 Assessment/plan Urosepsis Blood cultures obtained 11/17 grew gram-negative rods in 4-4 bottles, source of infection urine. Urine culture growing E. coli. Recommend treating with IV antibiotics for 3 to 4 days then de-escalating to oral antibiotic to complete a total antibiotic duration of 7 days. Obtaining baseline EKG, if QTC interval within normal range we will transition patient to oral ciprofloxacin for 3 days. Kassy rebolledo CHF COPD Hypothyroidism -Medical management per primary team Plan of care discussed with Dr. Ruddy Garcia for consultation. Physician Review Additional Text: Problem List Distended gallbladder Bacteruria, possible UTI Lactic acidosis Afib RVR, chronic afib on eliquis Hypothyroid HTN fever, afib, vomiting x2 (with greenish emesis) distended gallbladder on U/S and CT, no RUQ tenderness on exam, did have R shoulder blade / between shoulder blade pain mild elevated tbili consult general surgery Urine with bacteruria and nitrite/leuk est positive, concerning for UTI. patient denies any symptoms, but has h/o frequent UTIs in the past, has been >2 yrs since last one Zosyn to cover abdominal and urine pathogens patient didn't take home meds this morning, restart home metoprolol once confirmed, IV metop as needed Cardiology consulted full liquids tonight, ADAT continue home eliquis tonight check thyroid function VTE: eliquis Code: DNR Dispo: anticipate dc home in ~2 days
--- NOTE | 2021-11-20 14:25 | P.PN ---
Subjective Date of Service: 11/20/21 Chief Complaint: afib rvr, nausea, fever Patient has no new complaint. She remains on 2 L of oxygen by nasal cannula. She reports history of chronic dyspnea on exertion. Prior images have shown chronic interstitial lung disease. Patient also endorses history of COPD. Physical Examination - Vital Signs Temperature: 96.8 F Blood Pressure: 134/80 Pulse: 95 Respirations: 18 Pulse Ox (%): 91 - Studies Microbiology Data (last 24 hrs): 11/17/21 12:05 Blood - Blood Aerobic Blood Culture - Final Gram Neg Gustavo Escherichia Coli 11/17/21 12:05 Blood - Blood Blood Culture Gram Stain - Final 11/17/21 12:05 Blood - Blood Anaerobic Blood Culture - Final Gram Neg Gustavo Escherichia Coli 11/17/21 12:05 Blood - Blood Gram Stain - Final 11/17/21 11:45 Blood - Blood Aerobic Blood Culture - Final Escherichia Coli 11/17/21 11:45 Blood - Blood Blood Culture Gram Stain - Final 11/17/21 11:45 Blood - Blood Anaerobic Blood Culture - Final Escherichia Coli 11/17/21 11:45 Blood - Blood Gram Stain - Final Assessment And Plan - Plan Physical exam General: Alert, Oriented x3. HEENT: Mucous membr. moist/pink, Sclerae nonicteric Respiratory: Diminished, mild bibasilar crackles. Cardiovascular: Irregular heart rate/rhythm, no edema Gastrointestinal: Soft and benign, Non-distended, No tenderness Musculoskeletal: No erythema, No tenderness Problem List Sepsis, without severe sepsis/shock secondary to UTI/E. coli sepsis. E. coli UTI. Afib RVR, chronic afib on eliquis Distended gallbladder. Hypothyroid HTN fever, afib, vomiting x2 (with greenish emesis) prior to admission, with mild elevated tbili distended gallbladder on U/S and CT, no RUQ tenderness on exam, did have R shoulder blade / between shoulder blade pain consulted general surgery, possible episodes of biliary colic, f/u outpatient. Seen by infectious disease. Continue Zosyn today, transition to oral Cipro tomorrow. A. fib with better rate control, continue home metoprolol Seen by cardiology who recommended to continue home metoprolol/eliquis VTE: eliquis Code: DNR
[2021-11-20] MEDS ORDERED: POTASSIUM CL SA 10 MEQ TAB PO ONE (16:00)
--- NOTE | 2021-11-20 16:53 | EKG ---
Test Date: 2021-11-20 Test Time: 11:02:41 Chemist Inorganic: HUMBLE MEASUREMENT RESULTS: Intervals: Rate: 91 MN: QRSD: 82 QT: 380 QTc: 467 [place]: P: MN: QRS: 77 T: 143 INTERPRETIVE STATEMENTS: Atrial fibrillation Low voltage QRS Nonspecific ST and T wave abnormality, probably digitalis effect Abnormal ECG Compared to ECG 11/17/2021 15:25:54 Low QRS voltage now present Possible ischemia no longer present ST (T wave) deviation still present Electronically Signed On 11-20-21 16:53:11 PHARMACY ORDER ENTRY TECHNICIAN by John Samano
[2021-11-21] MEDS: PIPER TAZO 3.375 GM in NA CHLORIDE 0.9% 100 ML IV SCH ×3 (01:45→17:00)
[2021-11-21 04:23] LABS: Absolute Lymphocytes (CBC) 0.9 K/uL (0.7-4.9); Hematocrit 35.2 % (36.0-45.0); Lymphocytes % 9.3 % (15.3-44.8); MPV 9.3 fL (7.6-11.3); RBC Red Blood Cell Count 3.83 M/uL (3.86-4.86)
[2021-11-21 05:18] LABS: Potassium 3.9 mmol/L (3.5-5.1)
[2021-11-21] MEDS: LEVOTHYROXINE SOD 0.1 MG TAB PO SCH (05:37)
[2021-11-21] MEDS: METOPROLOL XL 100 MG TAB PO SCH (08:30)
[2021-11-21] MEDS: APIXABAN 2.5 MG TABLET PO SCH (08:30)
[2021-11-21] MEDS ORDERED: POTASSIUM 25 MEQ EFFERV TAB PO ONE (09:00)
[2021-11-21] MEDS ORDERED: POTASSIUM CL SA 10 MEQ TAB PO ONE (09:00)
--- NOTE | 2021-11-21 11:55 | P.PN ---
Subjective Date of Service: 11/21/21 Chief Complaint: afib rvr, nausea, fever Seen and examined at bedside, states she is feeling well. Review of Systems 10-point ROS is otherwise unremarkable Physical Examination - Vital Signs Temperature: 98.1 F Blood Pressure: 117/73 Pulse: 104 Respirations: 19 Pulse Ox (%): 91 - Studies Laboratory Last Values WBC 9.90 K/uL (4.3-10.9) 11/17/21 11:45 RBC 4.25 M/uL (3.86-4.86) 11/17/21 11:45 Hgb 13.0 g/dL (12.0-15.0) 11/17/21 11:45 Hct 39.6 % (36.0-45.0) 11/17/21 11:45 MCV 93.1 fL (80-100) 11/17/21 11:45 MCH 30.7 pg (27.0-35.0) 11/17/21 11:45 MCHC 32.9 g/dL (32.0-36.0) 11/17/21 11:45 RDW 15.6 % (12.1-15.2) H 11/17/21 11:45 Plt Count 236 K/uL (152-406) 11/17/21 11:45 MPV 9.7 fL (7.6-11.3) 11/17/21 11:45 Neutrophils % 96.1 % (41.7-73.7) H 11/17/21 11:45 Lymphocytes % 2.6 % (15.3-44.8) L 11/17/21 11:45 Monocytes % 1.0 % (3.3-12.3) L 11/17/21 11:45 Eosinophils % 0.0 % (0-4.4) 11/17/21 11:45 Basophils % 0.3 % (0-1.3) 11/17/21 11:45 Absolute Neutrophils 9.5 K/uL (1.8-8.0) H 11/17/21 11:45 Segmented Neutrophils 97 % (40-80) H 11/17/21 11:45 Absolute Lymphocytes 0.3 K/uL (0.7-4.9) L 11/17/21 11:45 Lymphocytes 2 % (15-42) L 11/17/21 11:45 Monocytes 1 % (0-10) 11/17/21 11:45 Absolute Monocytes 0.1 K/uL (0.1-1.3) 11/17/21 11:45 Absolute Eosinophils 0.0 K/uL (0-0.5) 11/17/21 11:45 Absolute Basophils 0.0 K/uL (0-0.5) 11/17/21 11:45 Platelet Estimate Adeq 11/17/21 11:45 Clumped Platelets Few 11/17/21 11:45 Morphology Comment Not seen (NOT SEEN) 11/17/21 11:45 Sodium 135 mmol/L (136-145) L 11/17/21 11:45 Potassium 3.4 mmol/L (3.5-5.1) L 11/17/21 11:45 Chloride 105 mmol/L (98-107) 11/17/21 11:45 Carbon Dioxide 21 mmol/L (21-32) 11/17/21 11:45 BUN 15 mg/dL (7-18) 11/17/21 11:45 Creatinine 1.19 mg/dL (0.55-1.3) 11/17/21 11:45 Estimated GFR 43 mL/min (=/>90) L 11/17/21 11:45 Glucose 128 mg/dL (74-106) H 11/17/21 11:45 Lactic Acid 3.8 mmol/L (0.4-2.0) H 11/17/21 12:42 Calcium 8.6 mg/dL (8.5-10.1) 11/17/21 11:45 Total Bilirubin 2.5 mg/dL (0.2-1.0) H 11/17/21 11:45 Direct Bilirubin 1.0 mg/dL (0-0.2) H 11/17/21 11:45 AST 22 U/L (15-37) 11/17/21 11:45 ALT 27 U/L (12-78) 11/17/21 11:45 Alkaline Phosphatase 93 U/L (45-117) 11/17/21 11:45 Troponin I High Sens 9.20 pg/mL (<58.9) 11/17/21 11:45 NT-Pro-B Natriuret Pep 5685 pg/mL (<450) H 11/17/21 11:45 Serum Total Protein 8.4 g/dL (6.4-8.2) H 11/17/21 11:45 Albumin 3.0 g/dL (3.4-5.0) L 11/17/21 11:45 Globulin 5.4 g/dL (2.3-3.5) H 11/17/21 11:45 Albumin/Globulin Ratio 0.6 (1.1-1.8) L 11/17/21 11:45 Lipase 67 U/L (73-393) L 11/17/21 11:45 Procalcitonin 0.80 ng/mL (<0.050) H 11/17/21 11:45 Urine pH 5.5 (5.0-7.0) 11/17/21 15:50 Ur Specific [place] <=1.005 (1.005-1.030) 11/17/21 15:50 Glucose (UA)(Auto) Negative (Negative) 11/17/21 15:50 Urine Ketones Negative (Negative) 11/17/21 15:50 Urine Blood 1+ (Negative) H 11/17/21 15:50 Urine Nitrite Positive (Negative) H 11/17/21 15:50 Ur Leukocyte Esterase 1+ (Negative) H 11/17/21 15:50 Urine RBC <5 /HPF (NONE SEEN) 11/17/21 15:40 Urine WBC >50 /HPF (<5) H 11/17/21 15:40 Ur Squamous Epith Cells <5 /HPF (NONE SEEN) 11/17/21 15:40 Urine Bacteria >50 /HPF (<20) H 11/17/21 15:40 Urine Culture Reflexed Reflexed 11/17/21 15:40 Urine Total Protein 1+ (Negative) H 11/17/21 15:50 Influenza Type A RNA Negative (NEGATIVE) 11/17/21 12:00 Influenza Type B RNA Negative (NEGATIVE) 11/17/21 12:00 SARS-CoV-2 RNA (RT-PCR) Negative (NEGATIVE) 11/17/21 12:00 Microbiology Data (last 24 hrs): 11/17/21 12:05 Blood - Blood Aerobic Blood Culture - Final Gram Neg Gustavo Escherichia Coli 11/17/21 12:05 Blood - Blood Blood Culture Gram Stain - Final 11/17/21 12:05 Blood - Blood Anaerobic Blood Culture - Final Gram Neg Gustavo Escherichia Coli 11/17/21 12:05 Blood - Blood Gram Stain - Final 11/17/21 11:45 Blood - Blood Aerobic Blood Culture - Final Escherichia Coli 11/17/21 11:45 Blood - Blood Blood Culture Gram Stain - Final 11/17/21 11:45 Blood - Blood Anaerobic Blood Culture - Final Escherichia Coli 11/17/21 11:45 Blood - Blood Gram Stain - Final Assessment And Plan - Plan Physical exam: General: Alert, In no apparent distress, Oriented x3 HEENT: Normocephalic Neck: 2+ carotid pulse no bruit Respiratory: Clear to auscultation bilaterally, Normal air movement Cardiovascular: No edema, Irregular heart rate/rhythm Gastrointestinal: Normal bowel sounds, Soft and benign Conclusions/Impression: Antibiotics Zosyn Start: 11/17 Assessment/plan Urosepsis Blood cultures obtained 11/17 grew gram-negative rods in 4-4 bottles, source of infection urine. Urine culture growing E. coli. Recommend treating with IV antibiotics for 3 to 4 days then de-escalating to oral antibiotic to complete a total antibiotic duration of 7 days. On discharge can transition to oral Augmentin. Kassy rebolledo CHF COPD Hypothyroidism -Medical management per primary team Plan of care discussed with Dr. Ruddy Garcia for consultation.
--- NOTE | 2021-11-21 13:26 | P.DS ---
Admission Date: 11/17/21 Discharge Date: 11/21/21 Disposition: ROUTINE DISCHARGE Discharge Condition: FAIR Reason for Admission: afib rvr, nausea, fever Consultations: Surgery-Dr. Nicole Cardiology-Dr. Samano. Brief History of Present Illness: 86yo F, PMH: Afib on eliquis, hypothyroidism, hypertension presents to the ED due to sudden onset of chills, shakes, and fever. Reported vomiting and pain between her shoulder blades and had back. Symptoms associated with dyspnea on exertion. She states it is typical for her, that after walking for "a while" her A. fib acts up and she gets short of breath and has to sit down and rest. She denied any dysuria, no increased urinary frequency. She reported a history of recurrent UTIs. In the ED, she was noted to be febrile to 100.7, A. fib with RVR up to 130s, with borderline hypertension. 90% on room air. Troponin negative, BNP slightly elevated, CXR with mild bilateral pulmonary opacities, lactic acidosis, and elevated procalcitonin. Mildly elevated bilirubin, distended gallbladder on CT and ultrasound, without other features of cholecystitis. No leukocytosis. UA suggested the presence of UTI. Patient admitted for further management/evaluation of her A. fib, possible UTI, and gallbladder. Hospital Course: Problem List Sepsis, without severe sepsis/shock secondary to UTI/E. coli sepsis. E. coli UTI. Afib RVR, chronic afib on eliquis Distended gallbladder. Hypothyroid HTN Chronic interstitial lung disease Patient admitted to the medical floor and treated with broad-spectrum antibiotic s. Her urine culture and blood cultures grew E. coli. Patient was treated with IV Zosyn for several days. Infectious disease consulted who assisted with management. Today is IV antibiotics day 5. ID recommend outpatient antibiotic therapy with Augmentin on discharge. distended gallbladder on U/S and CT, no RUQ tenderness on exam, did have R shoulder blade / between shoulder blade pain consulted general surgery, possible episodes of biliary colic, surgery wants to follow-up as an outpatient in case patient will need elective cholecystectomy. A. fib with better rate control, continued home metoprolol Seen by cardiology who recommended to continue her home metoprolol/eliquis. Patient has clinically improved. She is ambulatory. Prior CT scans shows interstitial lung disease. She had pulmonary nodules, status post lung resection. Patient noted to be hypoxic on room air especially with exertion. She qualifies for home oxygen which is prescribed on discharge. Vital Signs/Physical Exam: Temp Pulse Resp BP Pulse Ox 97.2 F 104 H 18 146/83 H 92 11/21/21 12:00 11/21/21 12:00 11/21/21 12:00 11/21/21 12:00 11/21/21 12:00 General: Alert, In no apparent distress, Oriented x3 HEENT: Mucous membr. moist/pink Neck: JVD not distended Respiratory: Clear to auscultation bilaterally, Normal air movement Cardiovascular: Normal S1 S2, Irregular heart rate/rhythm Gastrointestinal: Soft and benign, Non-distended Musculoskeletal: No swelling Integumentary: No rashes Neurological: Normal strength at 5/5 x4 extr Laboratory Data at Discharge: WBC 9.30 K/uL (4.3-10.9) D 11/21/21 04:07 Hgb 11.7 g/dL (12.0-15.0) L 11/21/21 04:07 Hct 35.2 % (36.0-45.0) L 11/21/21 04:07 Plt Count 212 K/uL (152-406) 11/21/21 04:07 Sodium 138 mmol/L (136-145) 11/21/21 04:07 Potassium 3.9 mmol/L (3.5-5.1) 11/21/21 04:07 BUN 12 mg/dL (7-18) 11/21/21 04:07 Creatinine 0.86 mg/dL (0.55-1.3) 11/21/21 04:07 Glucose 96 mg/dL (74-106) 11/21/21 04:07 Magnesium 2.4 mg/dL (1.8-2.4) 11/19/21 05:13 Total Bilirubin 1.4 mg/dL (0.2-1.0) H 11/18/21 05:45 AST 15 U/L (15-37) 11/18/21 05:45 ALT 21 U/L (12-78) 11/18/21 05:45 Alkaline Phosphatase 77 U/L (45-117) 11/18/21 05:45 Lipase 67 U/L (73-393) L 11/17/21 11:45 Home Medications: Amlodipine Besylate/Benazepril [Amlodipine-Benazepril 10-20 mg] 1 tab PO DAILY 11/17/21 Apixaban [Eliquis] 2.5 tab PO BID 11/17/21 Levothyroxine Sodium 1 tab PO DAILY 11/17/21 Metoprolol Succinate 1 tab PO DAILY 11/17/21 Amox/Clavulanate [Augmentin 875-125 Tab] 1 each PO BID #6 tab 11/21/21 New Medications: Amox/Clavulanate [Augmentin 875-125 Tab] 1 each PO BID #6 tab Diet: AHA Activity: Ad eliezer Followup: NONE,NONE [Primary Care Provider] - Time spent managing pt's care (in minutes): 37
[2021-11-21 16:07] VITALS: O2SAT 94
[2021-11-21 16:44] VITALS: BP 156/95; TEMP 97.1
== END 2021-11-21 17:21 | disposition home or self-care (01) | DRG 872 ==
LOC: ER 11:06 → 2ND 16:46
PROVIDERS: ADMIT Hospitalist; ATTEND Internal Medicine
DX: A41.51 Sepsis due to Escherichia coli [E. coli] (principal); I48.19 Other persistent atrial fibrillation; N39.0 Urinary tract infection, site not specified; E87.2 Acidosis; I24.8 Other forms of acute ischemic heart disease; J96.11 Chronic respiratory failure with hypoxia; J84.9 Interstitial pulmonary disease, unspecified; E03.9 Hypothyroidism, unspecified; N28.9 Disorder of kidney and ureter, unspecified; D64.9 Anemia, unspecified; K82.8 Other specified diseases of gallbladder; I10 Essential (primary) hypertension; J44.9 Chronic obstructive pulmonary disease, unspecified; Z66 Do not resuscitate; Z88.1 Allergy status to other antibiotic agents; Z79.890 Hormone replacement therapy; Z79.01 Long term (current) use of anticoagulants; Z88.8 Allergy status to other drugs, medicaments and biological substances; Z20.822 Contact with and (suspected) exposure to COVID-19
CPT/HCPCS: 0240U; 36415; 71045; 74177; 76705; 80048; 80053; 80076; 81003; 81015; 83605; 83690; 83735; 83880; 84145; 84439; 84443; 84484; 85025; 87040; 87077; 87086; 87088; 87186; 87205; 93005; 94760; 96374; 96375; 99284; J2270; J2405; J2543; J7030; J7040; Q9967

== ENCOUNTER 2023-09-14 13:32 | Inpatient (IN) | payer OTHER ==
--- OUTSIDE RECORDS SUMMARY | 2023-09-14 13:34 | XMS REPORT | Continuity of Care Document ---
:1935 Author Organization [facility] t Address [address] [facility] [address] [place] [id number] Care Team Providers Name Role Phone STEPHEN HWANG Attending Clinician Unavailable Payers Payer Name Policy Type Policy Number Effective Date Expiration Date S pola MEDICARE PART A [id number] 2002 \T\ B 00:00:00 Problems This patient has no known problems. Allergies, Adverse Reactions, Alerts Allergy Allergy Status Severity Reaction(s) Onset Inactive Treating Comm ents Source Name Type Date Date Clinician NO KNOWN Drug Active [facility] ALLERGIE Class [facility] Medications This patient has no known medications. Procedures This patient has no known procedures. Encounters Start End Encounter Admission Attending Care Care Encounter Source Date/Time Date/Time Type Type Clinicians Facility Department ID 2020-12-29 2020-12-29 Outpatient [facility] [id number] [facility] 15:00:00 15:00:00 [id number] [facility] 2020-12-29 2020-12-29 Outpatient Diego HWANG [facility] [id number] [facility] 15:00:00 15:00:00 STEPHEN [facility] Results This patient has no known results.
[2023-09-14 15:09] LABS: Lymphocytes % 8.6 % (15.3-44.8); MCV 91.2 fL (80-100); MPV 9.4 fL (7.6-11.3); Platelets 247 thou/uL (152-406); RBC Red Blood Cell Count 4.06 M/uL (3.86-4.86)
[2023-09-14 15:10] LABS: Protime INR 1.48
--- NOTE | 2023-09-14 15:24 | RAD REPORT ---
EXAM DESCRIPTION: RAD - Chest Single View - 09/14/2023 3:14 pm CLINICAL HISTORY: Cough;Dyspnea Chest pain. COMPARISON: <Comparisons> FINDINGS: Portable technique limits examination quality. Mild interstitial pulmonary edema is suspected. The heart is moderately enlarged. No displaced fractu res. IMPRESSION: Mild CHF.
[2023-09-14 15:29] LABS: SARS-CoV-2 Antigen Rapid Res Negative (Negative)
[2023-09-14 15:44] LABS: Albumin 3.1 g/dL (3.4-5.0); Bilirubin Direct 0.2 mg/dL (0-0.2); Bilirubin Indirect, Calculated 0.4 mg/dL (0.2-0.8); Bilirubin Total 0.6 mg/dL (0.2-1.0); Protein, Total 8.4 g/dL (6.4-8.2)
[2023-09-14 15:48] LABS: Magnesium 2.4 mg/dL (1.6-2.4); Potassium 4.3 mEq/L (3.5-5.1)
[2023-09-14 15:49] LABS: Specific Gravity 1.019 (1.005-1.030); Urine Bacteria <20 /HPF (<20); Urine Bilirubin NEGATIVE (Negative); Urine Blood Negative (Negative); Urine Clarity Extremely Turbid (Clear); Urine Color Yellow (Yellow); Urine Crystals Unidentified Few /HPF (None Seen); Urine Glucose NEGATIVE (Negative); Urine Mucus Slight /HPF (None Seen); Urine Protein 1+ (Negative); Urine RBC <5 /HPF (None Seen); Urine Urobilinogen Normal (Normal); Urine WBC Clump Rare /HPF (None Seen); Urine pH 5.5 (5.0-7.0)
[2023-09-14] MEDS ORDERED: NA CHLORIDE 0.9% 1,000 ML ONE (15:49)
[2023-09-14] MEDS ORDERED: CEFTRIAXONE 1000 MG/VIAL ONE (15:49)
--- NOTE | 2023-09-14 15:55 | EDPHYS ---
Physician Documentation [facility] Name: Lena Martínez Age: 88 yrs Sex: Female : 1935 Arrival Date: 09/14/2023 Time: 13:32 Bed 4 Private MD: ED Physician Raciel Marin HPI: 09/14 15:45 This 88 yrs old Female presents to ER via Wheelchair with complaints of sae Shortness Of Breath, Cough. 15:45 The patient has shortness of breath at rest, with light activity. Onset: The sae symptoms/episode began/occurred 3 day(s) ago. Duration: The symptoms are continuous, and are steadily getting worse. The patient's shortness of breath is aggravated by coughing, light activity, talking, walking. Associated signs and symptoms: Pertinent positives: non-productive cough. Severity of symptoms: At their worst the symptoms were moderate today, in the emergency department the symptoms have improved moderately. The patient has experienced similar episodes in the past, several times. Historical: - Allergies: 13:58 Sulfa (Sulfonamide Antibiotics); ap3 13:58 gabapentin; ap3 13:58 Lyrica; ap3 - Home Meds: 13:58 Eliquis oral [Active]; ap3 - PMHx: 13:58 Atrial fibrillation; home oxygen (Atrial fibrillation); ap3 - Immunization history:: Client reports receiving the 2nd dose of the Covid vaccine. - Social history:: Smoking status: Patient denies any tobacco usage or history of. ROS: 15:47 Constitutional: Negative for fever, chills, and weight loss, Eyes: Negative for injury, sae pain, redness, and discharge, ENT: Negative for injury, pain, and discharge, Neck: Negative for injury, pain, and swelling, Cardiovascular: Negative for chest pain, palpitations, and edema, Abdomen/GI: Negative for abdominal pain, nausea, vomiting, diarrhea, and constipation, Back: Negative for injury and pain, : Negative for injury, bleeding, discharge, and swelling, MS/Extremity: Negative for injury and deformity, Skin: Negative for injury, rash, and discoloration, Neuro: Negative for headache, weakness, numbness, tingling, and seizure, Psych: Negative for depression, anxiety, suicide ideation, homicidal ideation, and hallucinations, Allergy/Immunology: Negative for hives, rash, and allergies, Endocrine: Negative for neck swelling, polydipsia, polyuria, polyphagia, and marked weight changes, Hematologic/Lymphatic: Negative for swollen nodes, abnormal bleeding, and unusual bruising, 15:47 Respiratory: Positive for cough, shortness of breath, wheezing, inspiratory, expiratory, Exam: 15:47 Constitutional: This is a well developed, well nourished patient who is awake, alert, sae and in no acute distress. Head/Face: Normocephalic, atraumatic. Eyes: Pupils equal round and reactive to light, extra-ocular motions intact. Lids and lashes normal. Conjunctiva and sclera are non-icteric and not injected. Cornea within normal limits. Periorbital areas with no swelling, redness, or edema. ENT: Nares patent. No nasal discharge, no septal abnormalities noted. Tympanic membranes are normal and external auditory canals are clear. Oropharynx with no redness, swelling, or masses, exudates, or evidence of obstruction, uvula midline. Mucous membranes moist. Neck: Trachea midline, no thyromegaly or masses palpated, and no cervical lymphadenopathy. Supple, full range of motion without nuchal rigidity, or vertebral point tenderness. No Meningismus. Chest/axilla: Normal chest wall appearance and motion. Nontender with no deformity. No lesions are appreciated. Cardiovascular: Regular rate and rhythm with a normal S1 and S2. No gallops, murmurs, or rubs. Normal PMI, no JVD. No pulse deficits. Abdomen/GI: Soft, non-tender, with normal bowel sounds. No distension or tympany. No guarding or rebound. No evidence of tenderness throughout. Back: No spinal tenderness. No costovertebral tenderness. Full range of motion. Female : Normal external genitalia. Skin: Warm, dry with normal turgor. Normal color with no rashes, no lesions, and no evidence of cellulitis. MS/ Extremity: Pulses equal, no cyanosis. Neurovascular intact. Full, normal range of motion. Neuro: Awake and alert, GCS 15, oriented to person, place, time, and situation. Cranial nerves II-XII grossly intact. Motor strength 5/5 in all extremities. Sensory grossly intact. Cerebellar exam normal. Normal gait. Psych: Awake, alert, with orientation to person, place and time. Behavior, mood, and affect are within normal limits. 15:47 Respiratory: the patient does not display signs of respiratory distress, Respirations: labored breathing, that is mild, Breath sounds: bronchial sounds, decreased breath sounds, rhonchi, that are mild, stridor, is not appreciated, + upper airway congestion. wheezing: inspiratory expiratory 16:09 ECG was reviewed by the Attending Physician. [facility] Vital Signs: 13:56 BP 129 / 70; Pulse 101; Resp 24; Temp 98.9; Pulse Ox 92% on 3 lpm NC; Weight 86.18 kg; ap3 15:00 BP 147 / 63; Pulse 106; Resp 22; Pulse Ox 96% on 4 lpm NC; Pain 5/10; tl4 16:00 BP 139 / 65; Pulse 99; Resp 22; Pulse Ox 96% on 4 lpm NC; tl4 17:00 BP 135 / 57; Pulse 92; Resp 25; Pulse Ox 96% on 4 lpm NC; Pain 4/10; tl4 17:30 BP 160 / 87; Pulse 105; Resp 20; Pulse Ox 94% on 4 lpm NC; Pain 0/10; tl4 18:00 BP 147 / 68; Pulse 98; Resp 20; Pulse Ox 94% on 4 lpm NC; Pain 0/10; tl4 18:42 BP 161 / 82; Pulse 94; Resp 20; Pulse Ox 94% on 4 lpm NC; Pain 0/10; tl4 15:00 Pain Scale: Adult tl4 17:00 Pain Scale: Adult tl4 17:30 Pain Scale: Adult tl4 18:00 Pain Scale: Adult tl4 18:42 Pain Scale: Adult tl4 13:56 on her home O2 ap3 MDM: 14:16 Patient medically screened. sae 15:49 Differential diagnosis: Anemia Anxiety Reaction Bronchitis CHF exacerbation, Chronic sae Obstructive Pulmonary Disease acute asthma, reactive airway, CHF, URI, Myocardial Infarction pneumonia, reactive airway disease, Unstable Angina. Antibiotic administration: Rocephin and Zithromax given. Differential Diagnosis: Bronchitis Influenza Upper Respiratory Infection Sinusitis Pharyngitis Otitis Media Allergic Rhinitis Asthma Exacerbation Viral Syndrome Pneumonia Tracheal Injury. Immunization status: Pneumococcal vaccine: within last 5 years. Influenza vaccine: within last 5 years. Data reviewed: vital signs, nurses notes, lab test result(s), EKG, radiologic studies, plain films. Consideration of Admission/Observation Patient was admitted/placed on observation. Escalation of care including admission/observation considered. I considered the following discharge prescriptions or medication management in the emergency department Medications were administered in the Emergency Department. See MAR. Independent interpretation of the following test(s) in the Emergency Department EKG: See my EKG interpretation above. Test considered but Not performed: CT: ct chest ro pe. Care significantly affected by the following chronic conditions: Hypertension, Obesity, a fib, eliquis. 09/14 14:18 Order name: Basic Metabolic Panel; Complete Time: 15:52 [facility] 09/14 14:18 Order name: CBC with Diff; Complete Time: 15:39 [facility] 09/14 14:18 Order name: LFT's; Complete Time: 15:52 [facility] 09/14 14:18 Order name: Magnesium; Complete Time: 15:52 [facility] 09/14 14:18 Order name: NT PRO-BNP; Complete Time: 15:52 [facility] 09/14 14:18 Order name: PT-INR; Complete Time: 15:39 [facility] 09/14 14:18 Order name: Troponin HS; Complete Time: 15:52 [facility] 09/14 14:18 Order name: Blood Culture Adult (2) [facility] 09/14 14:18 Order name: Lactate w/ 2H reflex if indic.; Complete Time: 15:52 [facility] 09/14 14:18 Order name: SARS RAPID; Complete Time: 15:39 [facility] 09/14 14:18 Order name: Flu; Complete Time: 15:52 [facility] 09/14 14:18 Order name: Urinalysis w/ reflexes; Complete Time: 15:52 [facility] 09/14 15:53 Order name: Urine Culture [facility] 09/14 17:27 Order name: CBC with Automated Diff [facility] 09/14 17:27 Order name: CBC with Automated Diff [facility] 09/14 17:27 Order name: Comprehensive Metabolic Panel [facility] 09/14 17:27 Order name: Comprehensive Metabolic Panel [facility] 09/14 17:27 Order name: NT PRO-BNP [facility] 09/14 17:27 Order name: NT PRO-BNP [facility] 09/14 17:27 Order name: Procalcitonin [facility] 09/14 17:27 Order name: Procalcitonin [facility] 09/14 17:27 Order name: Troponin High Sensitivity [facility] 09/14 17:27 Order name: Troponin High Sensitivity [facility] 09/14 17:27 Order name: Troponin High Sensitivity [facility] 09/14 17:27 Order name: Troponin High Sensitivity [facility] 09/14 14:18 Order name: XRAY Chest (1 view); Complete Time: 15:39 [facility] 09/14 17:27 Order name: Chest Single View [facility] 09/14 17:27 Order name: Chest Single View [facility] 09/14 17:28 Order name: Echo with Doppler [facility] 09/14 17:28 Order name: Echo with Doppler [facility] 09/14 14:18 Order name: EKG; Complete Time: 14:19 [facility] 09/14 17:27 Order name: CONS Physician Consult [facility] 09/14 17:27 Order name: CONS Physician Consult [facility] 09/14 14:18 Order name: Cardiac monitoring; Complete Time: 14:18 [facility] 09/14 14:18 Order name: EKG - Nurse/Tech; Complete Time: 16:12 [facility] 09/14 14:18 Order name: IV Saline Lock; Complete Time: 14:50 [facility] 09/14 14:18 Order name: Labs collected and sent; Complete Time: 14:50 [facility] 09/14 14:18 Order name: O2 Per Protocol; Complete Time: 14:18 [facility] 09/14 14:18 Order name: O2 Sat Monitoring; Complete Time: 14:18 [facility] EC:09 Rate is 105 beats/min. Rhythm is irregularly irregular. QRS [place] is Normal. RI interval sae is normal. QRS interval is normal. QT interval is normal. No Q waves. T waves are Normal. No ST changes noted. Clinical impression: Atrial Fibrillation and No evidence of ischemia. Interpreted by me. Reviewed by me. Administered Medications: 15:39 CANCELLED (Duplicate Order): ns 0.9% 1000 ml IV at 125 ml/hr continuous sae 15:40 Drug: Rocephin IV 1 grams IV at per protocol once; Given slow IV push per pharmacy tl4 instructions Route: IV; Rate: per protocol; Site: right antecubital; 15:45 Follow up: IV Status: Completed infusion tl4 16:11 Drug: MethylPrednisoLONE IVP 125 mg IVP once Route: IVP; Infused Over: 2 mins; Site: tl4 right antecubital; 16:55 Follow up: Response: No adverse reaction tl4 16:12 Drug: Zithromax IVPB 500 mg IVPB once over 1 hrs; mix in 250 mL NS Route: IVPB; Rate: tl4 250 ml/hr; Infused Over: 1 hrs; Site: right antecubital; Delivery: Dial-a-flow; 18:04 Follow up: Response: No adverse reaction; IV Status: Completed infusion tl4 16:19 Drug: Levalbuterol Inhalation 3.75 mg Inhalation once Route: Inhalation; tl4 16:19 Drug: Ipratropium Inhalation Aerosol 0.5 mg Inhalation once Route: Inhalation; tl4 16:29 Drug: Potassium PO Effervescent Tablet 25 mEq PO once; dissolve in 4 ounces of water or tl4 juice Route: PO; 17:00 Follow up: Response: No adverse reaction tl4 16:35 Drug: Digoxin IVP 0.5 mg IVP once Route: IVP; Infused Over: 5 mins; Site: right tl4 antecubital; 17:00 Follow up: Response: No adverse reaction tl4 16:40 Drug: Furosemide IVP 40 mg IVP once; give over 2 minutes Route: IVP; Infused Over: 2 tl4 mins; Site: right antecubital; 17:01 Follow up: Response: No adverse reaction tl4 16:44 Drug: Magnesium Sulfate IVPB 2 grams IVPB once over 2 hrs Route: IVPB; Rate: 25 ml/hr; tl4 Infused Over: 2 hrs; Site: right antecubital; Delivery: Primary tubing; 18:46 Follow up: Response: No adverse reaction; IV Status: Completed infusion; IV Intake: [id number] 18:47 Not Given (pt admitted ): levalbuterol1.25 mg Inhalation once iw Disposition Summary: 09/14/23 15:54 Hospitalization Ordered Notes: Hospitalization Status: Inpatient Admission sae [facility] sae Condition: Fair sae Problem: new sae Symptoms: have improved sae Bed/Room Type: Standard sae Provider: Kevin Osman(09/14/23 16:10) sae Room Assignment: [facility](09/14/23 18:01) iw Diagnosis - Combined systolic (congestive) and diastolic (congestive) heart failure sae - Dyspnea sae - Hypoxemia sae - Chronic atrial fibrillation - WITH RVR (09/14/23 16:10) 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 sae sae 16:10 15:54 Michele Ocasio sae sae 16:10 15:54 Chronic atrial fibrillation sae sae 18:01 15:54 sae iw
--- NOTE | 2023-09-14 15:55 | ER ---
Nurse's Notes [facility] Name: Lena Martínez Age: 88 yrs Sex: Female : 1935 Arrival Date: 09/14/2023 Time: 13:32 Bed 4 Private MD: Diagnosis: Combined systolic (congestive) and diastolic (congestive) heart failure;Dyspnea;Hypoxemia;Chronic atrial fibrillation-WITH RVR ;prison (current) use of anticoagulants-ELIQUIS Presentation: 09/14 13:56 Chief complaint: Patient states: she has a cough that started Friday09/10/2023, ap3 patient has had to increase her home O2 to 3liters from 2 listers. Patient reports shortness of breath with ambulation. Coronavirus screen: Client presents with at least one sign or symptom that may indicate coronavirus-19. Ebola Screen: No symptoms or risks identified at this time. Initial Sepsis Screen: Does the patient meet any 2 criteria? HR > 90 bpm. Does the patient have a suspected source of infection? Yes: Productive cough/pneumonia. Risk Assessment: Do you want to hurt yourself or someone else? Patient reports no desire to harm self or others. Onset of symptoms was September 10, 2023. 13:56 Method Of Arrival: Wheelchair ap3 13:56 Acuity: АННА 3 ap3 Triage Assessment: 13:59 General: Appears in no apparent distress. Behavior is calm, cooperative, appropriate ap3 for age. Pain: Denies pain. Neuro: Level of Consciousness is awake, alert, obeys commands, Oriented to person, place, time, situation, Appropriate for age. Cardiovascular: Patient's skin is warm and dry. Respiratory: Reports shortness of breath on exertion cough that is Airway is patent Respiratory effort is even, unlabored, Respiratory pattern is regular, symmetrical, Onset: The symptoms/episode began/occurred gradually. 17:06 Respiratory: the patient has moderate shortness of breath. tl4 Historical: - Allergies: 13:58 Sulfa (Sulfonamide Antibiotics); ap3 13:58 gabapentin; ap3 13:58 Lyrica; ap3 - Home Meds: 13:58 Eliquis oral [Active]; ap3 - PMHx: 13:58 Atrial fibrillation; home oxygen (Atrial fibrillation); ap3 - Immunization history:: Client reports receiving the 2nd dose of the Covid vaccine. - Social history:: Smoking status: Patient denies any tobacco usage or history of. Screenin:59 Abuse screen: Denies threats or abuse. Nutritional screening: No deficits noted. ap3 Tuberculosis screening: No symptoms or risk factors identified. 17:05 [facility] ED Fall Risk Assessment (Adult) History of falling in the last 3 months, tl4 including since admission No falls in past 3 months (0 pts) Confusion or Disorientation No (0 pts) Intoxicated or Sedated No (0 pts) Impaired Gait No (0 pts) Mobility Assist Device Used Yes (1 pt) Altered Elimination No (0 pt) Score/Fall Risk Level 0 - 2 = Low Risk Oriented to surroundings, Maintained a safe environment, Educated pt \T\ family on fall prevention, incl call for assistance when getting out of bed, Assessed \T\ reinforced patient's understanding of fall precautions, Provided non-skid footwear, Hourly rounding (assess needs \T\ fall precautionary measures) done, Used gait belt as appropriate. Assessment: 15:00 General: Appears in no apparent distress. Behavior is calm, cooperative. Pain: tl4 Complains of pain in back. Neuro: No deficits noted. Cardiovascular: No deficits noted. Rhythm is atrial fibrillation Chest pain is denied. Respiratory: Reports shortness of breath cough that is pain with cough Airway is patent Respiratory effort is labored, Respiratory pattern is regular, Breath sounds are coarse Breath sounds are diminished bilaterally. GI: No deficits noted. GI: No signs and/or symptoms were reported involving the gastrointestinal system. : No deficits noted. No signs and/or symptoms were reported regarding the genitourinary system. EENT: No deficits noted. No signs and/or symptoms were reported regarding the EENT system. Reports. Vital Signs: 13:56 BP 129 / 70; Pulse 101; Resp 24; Temp 98.9; Pulse Ox 92% on 3 lpm NC; Weight 86.18 kg; ap3 15:00 BP 147 / 63; Pulse 106; Resp 22; Pulse Ox 96% on 4 lpm NC; Pain 5/10; tl4 16:00 BP 139 / 65; Pulse 99; Resp 22; Pulse Ox 96% on 4 lpm NC; tl4 17:00 BP 135 / 57; Pulse 92; Resp 25; Pulse Ox 96% on 4 lpm NC; Pain 4/10; tl4 17:30 BP 160 / 87; Pulse 105; Resp 20; Pulse Ox 94% on 4 lpm NC; Pain 0/10; tl4 18:00 BP 147 / 68; Pulse 98; Resp 20; Pulse Ox 94% on 4 lpm NC; Pain 0/10; tl4 18:42 BP 161 / 82; Pulse 94; Resp 20; Pulse Ox 94% on 4 lpm NC; Pain 0/10; tl4 15:00 Pain Scale: Adult tl4 17:00 Pain Scale: Adult tl4 17:30 Pain Scale: Adult tl4 18:00 Pain Scale: Adult tl4 18:42 Pain Scale: Adult tl4 13:56 on her home O2 ap3 ED Course: 13:34 Patient arrived in ED. rg4 13:58 Triage completed. ap3 13:59 Arm band placed on right wrist. ap3 14:16 Raciel Marin MD is Attending Physician. sae 14:40 Inserted saline lock: 20 gauge in right antecubital area, using aseptic technique. tl4 Blood collected. 14:49 Jordan Covarrubias is Primary Nurse. tl4 14:49 Flu Sent. tl4 14:50 SARS RAPID Sent. tl4 14:50 Lactate w/ 2H reflex if indic. Sent. tl4 14:50 Basic Metabolic Panel Sent. tl4 14:50 CBC with Diff Sent. tl4 14:50 LFT's Sent. tl4 14:50 Magnesium Sent. tl4 14:50 NT PRO-BNP Sent. tl4 14:50 Troponin HS Sent. tl4 14:50 PT-INR Sent. tl4 15:15 XRAY Chest (1 view) In Process Unspecified. EDMS 15:25 Blood Culture Adult (2) Sent. tl4 15:32 Urinalysis w/ reflexes Sent. tl4 15:53 Michele Ocasio is Hospitalizing Provider. sae 16:10 Kevin Osman MD is Hospitalizing Provider. sae 16:13 Blood Culture Adult (2) Sent. tl4 16:13 Urine Culture Sent. tl4 17:05 No provider procedures requiring assistance completed. tl4 17:06 Patient has correct armband on for positive identification. Bed in low position. Call tl4 light in reach. Side rails up X2. Adult w/ patient. Provided Education on: IV, meds. 18:47 Patient admitted, IV remains in place. tl4 Administered Medications: 15:39 CANCELLED (Duplicate Order): ns 0.9% 1000 ml IV at 125 ml/hr continuous sea 15:40 Drug: Rocephin IV 1 grams IV at per protocol once; Given slow IV push per pharmacy tl4 instructions Route: IV; Rate: per protocol; Site: right antecubital; 15:45 Follow up: IV Status: Completed infusion tl4 16:11 Drug: MethylPrednisoLONE IVP 125 mg IVP once Route: IVP; Infused Over: 2 mins; Site: tl4 right antecubital; 16:55 Follow up: Response: No adverse reaction tl4 16:12 Drug: Zithromax IVPB 500 mg IVPB once over 1 hrs; mix in 250 mL NS Route: IVPB; Rate: tl4 250 ml/hr; Infused Over: 1 hrs; Site: right antecubital; Delivery: Dial-a-flow; 18:04 Follow up: Response: No adverse reaction; IV Status: Completed infusion tl4 16:19 Drug: Levalbuterol Inhalation 3.75 mg Inhalation once Route: Inhalation; tl4 16:19 Drug: Ipratropium Inhalation Aerosol 0.5 mg Inhalation once Route: Inhalation; tl4 16:29 Drug: Potassium PO Effervescent Tablet 25 mEq PO once; dissolve in 4 ounces of water or tl4 juice Route: PO; 17:00 Follow up: Response: No adverse reaction tl4 16:35 Drug: Digoxin IVP 0.5 mg IVP once Route: IVP; Infused Over: 5 mins; Site: right tl4 antecubital; 17:00 Follow up: Response: No adverse reaction tl4 16:40 Drug: Furosemide IVP 40 mg IVP once; give over 2 minutes Route: IVP; Infused Over: 2 tl4 mins; Site: right antecubital; 17:01 Follow up: Response: No adverse reaction tl4 16:44 Drug: Magnesium Sulfate IVPB 2 grams IVPB once over 2 hrs Route: IVPB; Rate: 25 ml/hr; tl4 Infused Over: 2 hrs; Site: right antecubital; Delivery: Primary tubing; 18:46 Follow up: Response: No adverse reaction; IV Status: Completed infusion; IV Intake: [id number] 18:47 Not Given (pt admitted ): levalbuterol1.25 mg Inhalation once iw Medication: 15:00 VIS not applicable for this client. tl4 Intake: 18:46 IV: 50ml; Total: 50ml. tl4 Outcome: 15:54 Decision to Hospitalize by Provider. sae 18:45 Admitted to Med/surg accompanied by tech, family with patient, via stretcher, room 203, tl4 with oxygen, Report called to Shalini CORRAL 18:45 Condition: stable 18:45 Instructed on the need for admit, 18:48 Patient left the ED. tl4 Signatures: Dispatcher [employer] EDRaciel Santa MD MD cha Garcia, Bridget rg4 Jing Varghese RN RN ap3 Marci, Jordan tl4 Abigail Godfrey RN iw
[2023-09-14] MEDS ORDERED: LEVALBUTEROL 1.25 MG/3 ML NEB ONE ×2 (16:10→16:19)
[2023-09-14] MEDS ORDERED: METHYLPREDNISOLONE 125 MG INJ ONE (16:10)
[2023-09-14] MEDS ORDERED: AZITHROMYCIN 500 MG INJ IVPB ONE (16:10)
[2023-09-14] MEDS ORDERED: IPRATROPIUM BROM 0.5MG/2.5ML ONE (16:10)
[2023-09-14] MEDS ORDERED: NA CHLORIDE 0.9% 250 ML ONE (16:11)
[2023-09-14] MEDS ORDERED: DIGOXIN 0.25 MG/ML AMP ONE (16:39)
[2023-09-14] MEDS ORDERED: FUROSEMIDE 40 MG/4 ML VIAL ONE (16:40)
[2023-09-14] MEDS ORDERED: POTASSIUM 25 MEQ EFFERV TAB ONE (16:40)
[2023-09-14] MEDS ORDERED: MAGNESIUM SULFATE 1 gm IVPB 0 GM/0 ML BAG IV ONE (16:41)
[2023-09-14] MEDS ORDERED: Magnesium Sulfate 2gm IVPB 2 G/50 ML BAG IV ONE (16:56)
[2023-09-14] MEDS ORDERED: ONDANSETRON 4 MG/2 ML VIAL IV PRN (17:22)
[2023-09-14] MEDS ORDERED: ACETAMINOPHEN 500 MG TAB PO PRN (17:22)
[2023-09-14] MEDS ORDERED: MORPHINE 2 MG/ML SYR IV PRN (17:22)
--- NOTE | 2023-09-14 17:27 | P.HP ---
Certification for Inpatient Patient admitted to: Inpatient With expected LOS: >2 Midnights Patient will require the following post-hospital care: None Practitioner: I am a practitioner with admitting privileges, knowledge of patient current condition, hospital course, and medical plan of care. Services: Services provided to patient in accordance with Admission requirements found in Title 42 Section 412.3 of the Code of Federal Regulations Patient History Date of Service: 09/14/23 Reason for admission: Respiratory distress History of Present Illness: Patient is an 88-year-old female who presents to the emergency room with shortness of breath. Patient has a history of COPD and she is on home oxygen. Patient states she never has had any cardiac issues but she presented to the emergency room with what appears to be pulmonary edema on her chest x-ray. Patient was given diuretics in the emergency room and started to feel better. Patient is also been given nebs and steroids. Patient follows up with cardiology Dr. Aceves and pulmonary Dr. Vivar. Patient will be admitted to the hospital for further evaluation. Allergies pregabalin [From Lyrica] Allergy (Verified 12/06/11 08:37) drooping in face area Sulfa (Sulfonamide Antibiotics) [Sulfa(Sulfonamide Antibiotics)] Allergy (Verified 12/06/11 08:35) joint/tongue swelling Home Medications: Amlodipine Besylate/Benazepril [Amlodipine-Benazepril 10-20 mg] 1 tab PO DAILY 11/17/21 Apixaban [Eliquis] 2.5 tab PO BID 11/17/21 Levothyroxine Sodium 1 tab PO DAILY 11/17/21 Metoprolol Succinate 1 tab PO DAILY 11/17/21 - Past Medical/Surgical History -: A. fib on Eliquis -: Hypothyroid -: Hypertension -: lung lobectomy - Left lower lobe - Family History Mother Medical History: Cancer - Social History Smoking Status: Never smoker Alcohol use: No CD- Drugs: No Review of Systems 10-point ROS is otherwise unremarkable Physical Examination - Vital Signs Temperature: 98 F Blood Pressure: 120/80 Pulse: 105 Respirations: 22 Pulse Ox (%): 95 - Physical Exam General: Alert, In no apparent distress, Oriented x3 HEENT: Atraumatic, PERRLA, Mucous membr. moist/pink, EOMI, Sclerae nonicteric Neck: Supple, 2+ carotid pulse no bruit, No LAD, Without JVD or thyroid abnormality Respiratory: Diminished, Expiratory wheezes Cardiovascular: Irregular heart rate/rhythm Gastrointestinal: Normal bowel sounds, Soft and benign, Non-distended, No tenderness Musculoskeletal: No clubbing, No swelling, No tenderness Integumentary: No rashes Neurological: Normal tone, Sensation intact, Cranial nerves 3-12 intact, Normal affect, Abnormal gait, Abnormal strength Lymphatics: No axilla or inguinal lymphadenopathy - Studies Laboratory Data (last 24 hrs) 09/14/23 09/14/23 09/14/23 14:40 14:40 14:40 WBC 11.50 H Hgb 12.2 Hct 37.0 Plt Count 247 PT 16.3 H INR 1.48 Sodium 135 L Potassium 4.3 BUN 21 H Creatinine 0.90 Glucose 126 H Magnesium 2.4 Total Bilirubin 0.6 AST 24 ALT 17 Alkaline Phosphatase 75 Microbiology Data (last 24 hrs): 09/14/23 14:40 Nasopharnyx Influenza Type A Antigen Screen - Final 09/14/23 14:40 Nasopharnyx Influenza Type B Antigen Screen - Final Assessment & Plan - Problems (Diagnosis) (1) Acute respiratory distress Current Visit: Yes Status: Acute (2) Atrial fibrillation Current Visit: Yes Status: Acute (3) Acute exacerbation of COPD with asthma Current Visit: Yes Status: Acute (4) Acute diastolic CHF (congestive heart failure) Current Visit: Yes Status: Acute - Plan Plan: 1. Continue with diuresing; echocardiogram pending 2. Cardiology consultation 3. Continue with nebs, steroids, and antibiotics; pulmonary consultation 4. Continue metoprolol and Eliquis 5. Strict blood pressure control 6. GI DVT prophylaxis Discharge Plan: Home Plan to discharge in: Greater than 2 days - Advance Directives Does patient have a Living Will: Yes Does patient have a Durable POA for Healthcare: Yes - Code Status/Comfort Care Code Status Assessed: Yes Code Status: Full Code Critical Care: No Time Spent Managing PTS Care (In Minutes): 45
[2023-09-14] MEDS: IPRATROPIUM BROM 0.5MG/2.5ML NEB SCH (19:25)
[2023-09-14] MEDS: ARFORMOTEROL TARTRATE 15 MCG/2 ML VIAL.NEB NEB SCH (19:25)
[2023-09-14] MEDS ORDERED: APIXABAN 5 MG TABLET PO SCH (21:00)
[2023-09-14] MEDS: METHYLPREDNISOLONE 125 MG INJ IV SCH (21:37)
[2023-09-14] MEDS ORDERED: ALBUTEROL 2.5 MG/3 ML NEB SOL NEB PRN (22:00)
[2023-09-15] MEDS: METHYLPREDNISOLONE 125 MG INJ IV SCH ×3 (00:12→14:05)
[2023-09-15] MEDS: FUROSEMIDE 20 MG/ 2ML VIAL IV SCH ×3 (00:13→17:48)
[2023-09-15] MEDS: IPRATROPIUM BROM 0.5MG/2.5ML NEB SCH ×4 (00:50→20:36)
[2023-09-15 01:40] VITALS: BMI 30.7
[2023-09-15 03:37] LABS: Absolute Lymphocytes (CBC) 0.8 K/uL (0.7-4.9); Hematocrit 35.8 % (36.0-45.0); Lymphocytes % 9.7 % (15.3-44.8); MCV 91.3 fL (80-100); MPV 9.4 fL (7.6-11.3); Platelets 238 thou/uL (152-406); RBC Red Blood Cell Count 3.92 M/uL (3.86-4.86)
[2023-09-15 04:31] LABS: Bilirubin Total 0.5 mg/dL (0.2-1.0); Potassium 3.8 mEq/L (3.5-5.1); Troponin High Sensitivity 8.8 pg/mL (<58.9)
[2023-09-15 06:12] LABS: Blood Morphology Comment NOT SEEN (NOT SEEN); Platelet Estimate ADEQ
[2023-09-15] MEDS ORDERED: METOPROLOL XL 100 MG TAB PO ONE (06:30)
[2023-09-15] MEDS: ARFORMOTEROL TARTRATE 15 MCG/2 ML VIAL.NEB NEB SCH ×2 (07:40→20:36)
[2023-09-15] MEDS ORDERED: CEFTRIAXONE 1,000 MG in NA CHLORIDE 0.9% 50 ML IVPB SCH (09:00)
[2023-09-15] MEDS ORDERED: LEVOTHYROXINE SOD 0.1 MG TAB PO SCH (09:00)
[2023-09-15] MEDS ORDERED: METOPROLOL XL 100 MG TAB PO SCH (09:00)
--- NOTE | 2023-09-15 09:11 | RAD REPORT ---
EXAM DESCRIPTION: Wendie Single View09/15/2023 4:28 am CLINICAL HISTORY: Shortness of breath COMPARISON: September 14, 2023 FINDINGS: Mild bilateral pulmonary opacities have mostly resolved Heart remains enlarged
[2023-09-15] MEDS: APIXABAN 5 MG TABLET PO SCH ×2 (09:53→20:14)
--- NOTE | 2023-09-15 16:41 | P.CNS ---
Date of Consult: 09/15/23 Reason for Consult: Cough and SOB Chief Complaint: Respiratory distress History of Present Illness: Sick for 3 days C/o cough Resp distress wiht low O2 .Hx of Afib On O2 at home Allergies pregabalin [From Lyrica] Allergy (Verified 12/06/11 08:37) drooping in face area Sulfa (Sulfonamide Antibiotics) [Sulfa(Sulfonamide Antibiotics)] Allergy (Verified 12/06/11 08:35) joint/tongue swelling Home Medications: Amlodipine Besylate/Benazepril [Amlodipine-Benazepril 10-20 mg] 1 tab PO DAILY 11/17/21 Apixaban [Eliquis] 2.5 tab PO BID 11/17/21 Levothyroxine Sodium 1 tab PO DAILY 11/17/21 Metoprolol Succinate 1 tab PO DAILY 11/17/21 - Past Medical/Surgical History Diabetic: No -: A. fib on Eliquis -: Hypothyroid -: Hypertension -: arthritis -: lung lobectomy - Left lower lobe - Family History Mother History Unknown: Yes Medical History: Cancer - Social History Alcohol use: No CD- Drugs: No Caffeine use: No Place of Residence: Home Review of Systems 10-point ROS is otherwise unremarkable Physical Examination Temp Pulse Resp BP Pulse Ox 96.8 F 99 H 16 166/64 H 94 09/15/23 08:00 09/15/23 09:53 09/15/23 08:00 09/15/23 09:53 09/15/23 08:00 General: Alert, In no apparent distress, Oriented x3 HEENT: Atraumatic Neck: Supple Respiratory: Clear to auscultation bilaterally Cardiovascular: No edema, Regular rate/rhythm Gastrointestinal: Normal bowel sounds, Soft and benign - Problems (1) CHF (congestive heart failure) Current Visit: Yes Status: Acute Plan: Age 88 AW COUGH and SOB. likely CHF, BNP elevated. ILD on CXRY/ UTI ?/ Chem reviewed/ BP elevated Qualifiers: Heart failure type: unspecified
--- NOTE | 2023-09-15 16:54 | P.PN ---
Subjective Date of Service: 09/15/23 Chief Complaint: Respiratory distress Subjective: Improving, Doing well Patient seen at bedside. Reports improvement in shortness of breath and cough. Continue supportive care. Review of Systems General: Unremarkable Eyes: Unremarkable ENT: Unremarkable Respiratory: Cough, Shortness of Breath Cardiovascular: Unremarkable Gastrointestinal: Unremarkable Genitourinary: Unremarkable Musculoskeletal: Unremarkable Integumentary: Unremarkable Neurological: Unremarkable Lymphatics: Unremarkable Physical Examination - Vital Signs Temperature: 96.8 F Blood Pressure: 166/64 Pulse: 99 Respirations: 16 Pulse Ox (%): 94 - Physical Exam General: Alert, In no apparent distress, Oriented x3, Cooperative HEENT: Atraumatic, PERRLA, EOMI Neck: Supple, JVD not distended Respiratory: Normal air movement, Diminished Cardiovascular: No edema, Regular rate/rhythm, Normal S1 S2 Capillary refill: <2 Seconds Gastrointestinal: Normal bowel sounds, Soft and benign, No tenderness Musculoskeletal: No clubbing, No swelling, No tenderness Integumentary: No rashes, No erythema, No warmth Neurological: Normal speech, Normal tone, Normal affect Lymphatics: No axilla or inguinal lymphadenopathy - Studies Microbiology Data (last 24 hrs): 09/14/23 14:40 Nasopharnyx Influenza Type A Antigen Screen - Final 09/14/23 14:40 Nasopharnyx Influenza Type B Antigen Screen - Final Assessment And Plan - Plan Assessment & Plan Interval history. 09/15/2023. Patient seen at bedside. Reports improvement in shortness of breath and cough. --UTI POA. Urine cultures growing gram-negative andrea. C&S pending. Continue antibiotics. --Suspected acute diastolic CHF. Echocardiogram pending. Cardiology is on board. Continue diuresis with Lasix. Daily weight and strict I/O. Will await further recommendation from employment clerk. --Acute respiratory failure with hypoxia. Continue current treatment regimen. Will await further recommendation from concrete swimming pool installer. --DVT prophylaxis with Eliquis. - Problems (Diagnosis) (1) Acute respiratory distress Current Visit: Yes Status: Acute (2) Atrial fibrillation Current Visit: Yes Status: Acute (3) Acute exacerbation of COPD with asthma Current Visit: Yes Status: Acute (4) Acute diastolic CHF (congestive heart failure) Current Visit: Yes Status: Acute - Plan Plan: 1. Continue with diuresing; echocardiogram pending 2. Cardiology consultation 3. Continue with nebs, steroids, and antibiotics; pulmonary consultation 4. Continue metoprolol and Eliquis 5. Strict blood pressure control 6. GI DVT prophylaxis Discharge Plan: Home Plan to discharge in: Greater than 2 days - Advance Directives Does patient have a Living Will: Yes Does patient have a Durable POA for Healthcare: Yes - Code Status/Comfort Care Code Status Assessed: Yes Code Status: Full Code Discharge Plan: Home Plan to discharge in: 72 Hours - Code Status/Comfort Care Code Status Assessed: Yes Physician Review: Patient Assessed, Agree with Above Assessment and Plan Critical Care: No
[2023-09-15] MEDS: SPIRONOLACTONE 25 MG TABLET PO SCH (17:49)
[2023-09-16] MEDS: FUROSEMIDE 20 MG/ 2ML VIAL IV SCH ×2 (00:54→08:49)
[2023-09-16] MEDS: IPRATROPIUM BROM 0.5MG/2.5ML NEB SCH ×2 (02:00→08:13)
[2023-09-16] MEDS: ARFORMOTEROL TARTRATE 15 MCG/2 ML VIAL.NEB NEB SCH (08:22)
[2023-09-16] MEDS: LEVOTHYROXINE SOD 0.1 MG TAB PO SCH (08:49)
[2023-09-16] MEDS: APIXABAN 5 MG TABLET PO SCH ×2 (08:49→21:15)
[2023-09-16] MEDS: SPIRONOLACTONE 25 MG TABLET PO SCH ×2 (08:53→21:14)
[2023-09-16] MEDS: NITROFURAN MACRO 100 MG CAP PO SCH ×2 (08:53→21:14)
[2023-09-16] MEDS ORDERED: LEVOTHYROXINE SOD 0.1 MG TAB PO SCH (09:00)
--- NOTE | 2023-09-16 11:24 | ECHO ---
HEIGHT: 5 ft 6 in WEIGHT: 190 lb 0 oz DATE OF STUDY: 09/15/[address]: Kevin Omsan MD 2-DIMENSIONAL: YES M.MODE: YES DOPPLER: YES COLOR FLOW: YES TDS: PORTABLE: YES DEFINITY: BUBBLE STUDY: DIAGNOSIS: CONGESTIVE HEART FAILURE CARDIAC HISTORY: CATHERIZATION: SURGERY: PROSTHETIC VALVE: PACEMAKER: MEASUREMENTS (cm) DIASTOLIC (NORMALS) SYSTOLIC (NORMALS) IVSd 0.9 (0.6-1.2) LA Diam 4.8 (1.9-4.0) LVEF 71% LVIDd 4.1 (3.5-5.7) LVIDs 2.5 (2.0-3.5) %FS 40% LVPWd 1.0 (0.6-1.2) Ao Diam 2.6 (2.0-3.7) 2 DIMENSIONAL ASSESSMENT: RIGHT ATRIUM: NORMAL LEFT ATRIUM: ENLARGED RIGHT VENTRICLE: NORMAL LEFT VENTRICLE: NORMAL TRICUSPID VALVE: MILD TO MODERATE TRICUSPID REGURGITATION MITRAL VALVE: MILD MITRAL REGURGITATION PULMONIC VALVE: MILD PULMONIC INSUFFICIENCY AORTIC VALVE: AORTIC INSUFFICIENCY PERICARDIAL EFFUSION: NONE AORTIC ROOT: NORMAL LEFT VENTRICULAR WALL MOTION: NORMAL DOPPLER/COLOR FLOW: SEE BELOW COMMENTS: 1. NORMAL LEFT VENTRICULAR EJECTION FRACTION 60-65% WITH NORMAL WALL MOTION 2. DIASTOLIC DYSFUNCTION 3. 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 LEFT ATRIAL ENLARGEMENT 5. MILD MITRAL REGURGITATION, PULMONIC INSUFFICIENCY 6. MODERATE AORTIC INSUFFICIENCY 7. MODERATE TRICUSPID REGURGITATION TECHNOLOGIST: SUMIT CAVAZOS
--- NOTE | 2023-09-16 12:01 | P.PN ---
Subjective Date of Service: 09/16/23 Chief Complaint: Coughing Subjective: Improving (Patient is doing much better today tautness of breath has improved) Review of Systems Unremarkable Physical Examination - Vital Signs Temperature: 97.0 F Blood Pressure: 140/75 Pulse: 124 Respirations: 14 Pulse Ox (%): 94 - Physical Exam General: Alert, Oriented x3 Respiratory: Clear to auscultation bilaterally Cardiovascular: No edema, Regular rate/rhythm, Normal S1 S2 - Studies Microbiology Data (last 24 hrs): 09/14/23 15:22 Clean Catch Urine [employer] Count - Final >100,000 CFU/ML. 09/14/23 15:22 Clean Catch Urine - Final Escherichia Coli Gram Neg Gustavo Assessment And Plan - Current Problems (Diagnosis) (1) CHF (congestive heart failure) Current Visit: Yes Status: Acute Plan: Patient is doing much better patient has clearly diastolic heart failure continue with spironolactone and Lasix as needed not sure if patient needs oxygen plan for discharge E. coli isolated in the urine changed to Macrodantin Qualifiers: Heart failure type: unspecified Physician Review: Patient Assessed, Agree with Above Assessment and Plan
[2023-09-16] MEDS ORDERED: AMIODARONE HCL 150 MG in D5W 100 ML IV ONE (12:35)
[2023-09-16] MEDS ORDERED: AMIODARONE HCL 900 MG in Dextrose 5%-Water 482 ML IV SCH ×3 (12:45→18:45)
--- NOTE | 2023-09-16 15:25 | P.PN ---
Subjective Date of Service: 09/16/23 Chief Complaint: Coughing Subjective: Improving, New changes Patient seen at bedside. Patient complained of substernal chest pain which lasted for 5 minutes. Continue supportive care Review of Systems General: Unremarkable Eyes: Unremarkable ENT: Unremarkable Respiratory: Cough, Shortness of Breath Cardiovascular: Chest Pain Gastrointestinal: Unremarkable Genitourinary: Unremarkable Musculoskeletal: Unremarkable Integumentary: Unremarkable Neurological: Unremarkable Lymphatics: Unremarkable Physical Examination - Vital Signs Temperature: 97.0 F Blood Pressure: 140/75 Pulse: 124 Respirations: 14 Pulse Ox (%): 94 - Physical Exam General: Alert, In no apparent distress, Oriented x3, Cooperative HEENT: Atraumatic, PERRLA, EOMI Neck: Supple, JVD not distended Respiratory: Normal air movement, Diminished Cardiovascular: No edema, Normal S1 S2, Irregular heart rate/rhythm Capillary refill: <2 Seconds Gastrointestinal: Normal bowel sounds, Soft and benign, No tenderness Musculoskeletal: No clubbing, No tenderness Integumentary: No rashes Neurological: Normal speech, Normal tone, Normal affect Lymphatics: No axilla or inguinal lymphadenopathy - Studies Microbiology Data (last 24 hrs): 09/14/23 15:22 Clean Catch Urine [place] Count - Final >100,000 CFU/ML. 09/14/23 15:22 Clean Catch Urine - Final Escherichia Coli Gram Neg Gustavo Assessment And Plan - Plan Assessment & Plan Interval history. 09/16/23 Patient complaining of substernal chest pain that lasted for about 5 minutes. EKG and troponin ordered. Home Health Care Case Manager on board. Telemetry. Okay. Continue supportive care. --A-fib with RVR. Home Health Care Case Manager ordered amiodarone drip. Telemetry to monitor for any significant arrhythmia. --UTI POA. E. coli isolated in urine. Patient switched to p.o. antibiotics. --Acute diastolic CHF. Continue diuresis with Lasix and spironolactone. Further management per public information specialist. --Acute on chronic respiratory failure with hypoxia. Likely secondary to CHF exacerbation. Continue current treatment regimen. Dispatcher Clerk on board. -- DVT prophylaxis with Eliquis. 09/15/2023. Patient seen at bedside. Reports improvement in shortness of breath and cough. --UTI POA. Urine cultures growing gram-negative gustavo. C&S pending. Continue antibiotics. --Suspected acute diastolic CHF. Echocardiogram pending. Cardiology is on board. Continue diuresis with Lasix. Daily weight and strict I/O. Will await further recommendation from public information specialist. --Acute respiratory failure with hypoxia. Continue current treatment regimen. Will await further recommendation from disability services coordinator. --DVT prophylaxis with Eliquis. - Problems (Diagnosis) (1) Acute respiratory distress Current Visit: Yes Status: Acute (2) Atrial fibrillation Current Visit: Yes Status: Acute (3) Acute exacerbation of COPD with asthma Current Visit: Yes Status: Acute (4) Acute diastolic CHF (congestive heart failure) Current Visit: Yes Status: Acute - Plan Plan: 1. Continue with diuresing; echocardiogram pending 2. Cardiology consultation 3. Continue with nebs, steroids, and antibiotics; pulmonary consultation 4. Continue metoprolol and Eliquis 5. Strict blood pressure control 6. GI DVT prophylaxis Discharge Plan: Home Plan to discharge in: Greater than 2 days - Advance Directives Does patient have a Living Will: Yes Does patient have a Durable POA for Healthcare: Yes - Code Status/Comfort Care Code Status Assessed: Yes Code Status: Full Code Discharge Plan: Home Plan to discharge in: Greater than 2 days - Code Status/Comfort Care Code Status Assessed: Yes Physician Review: Patient Assessed, Agree with Above Assessment and Plan Critical Care: No
[2023-09-17] MEDS: LEVOTHYROXINE SOD 0.1 MG TAB PO SCH (05:57)
[2023-09-17] MEDS: NITROFURAN MACRO 100 MG CAP PO SCH (08:37)
[2023-09-17] MEDS: APIXABAN 5 MG TABLET PO SCH (08:38)
[2023-09-17] MEDS: SPIRONOLACTONE 25 MG TABLET PO SCH (08:40)
[2023-09-17] MEDS ORDERED: FUROSEMIDE 40 MG TABLET PO SCH (09:00)
[2023-09-17 09:14] VITALS: O2SAT 93
[2023-09-17 12:20] VITALS: TEMP 97
[2023-09-17] MEDS ORDERED: AMIODARONE HCL 900 MG in Dextrose 5%-Water 482 ML IV SCH (13:30)
[2023-09-17 16:14] VITALS: BP 139/82
--- NOTE | 2023-09-17 16:51 | EKG ---
Test Date: 2023-09-16 Test Time: 13:40:32 Illuminating Engineer: SABI MEASUREMENT RESULTS: Intervals: Rate: 97 CO: QRSD: 82 QT: 362 QTc: 459 [place]: P: CO: QRS: 18 T: 195 INTERPRETIVE STATEMENTS: Atrial fibrillation ST & T wave abnormality, consider lateral ischemia or digitalis effect Abnormal ECG Compared to ECG 09/14/2023 16:04:52 No significant changes Electronically Signed On 09-17-23 16:49:44 SAWMILL WORKER by Forrest Rae
--- NOTE | 2023-09-17 17:00 | EKG ---
Test Date: 2023-09-14 Test Time: 16:04:52 Breaking Machine Operator: AMARA MEASUREMENT RESULTS: Intervals: Rate: 105 [place]: QRSD: 80 QT: 364 QTc: 481 [place]: P: IL: QRS: 19 T: -39 INTERPRETIVE STATEMENTS: Atrial fibrillation Low voltage QRS ST & T wave abnormality, consider inferolateral ischemia or digitalis effect Abnormal ECG Compared to ECG 11/20/2021 11:02:41 Possible ischemia now present ST (T wave) deviation still present Electronically Signed On 09-17-23 16:53:35 RISK MANAGEMENT CONSULTANT by Forrest Rae
--- NOTE | 2023-09-17 17:33 | P.DS ---
Admission Date: 09/14/23 Discharge Date: 09/17/23 Disposition: ROUTINE DISCHARGE Discharge Condition: GOOD Reason for Admission: Coughing Vital Signs/Physical Exam: Temp Pulse Resp BP Pulse Ox 97.0 F 96 H 16 139/82 96 09/17/23 16:00 09/17/23 16:00 09/17/23 16:00 09/17/23 16:00 09/17/23 16:00 Laboratory Data at Discharge: WBC 7.70 thou/uL (4.3-10.9) 09/15/23 02:42 Hgb 12.1 g/dL (12.0-15.0) 09/15/23 02:42 Hct 35.8 % (36.0-45.0) L 09/15/23 02:42 Plt Count 238 thou/uL (152-406) 09/15/23 02:42 PT 16.3 SECONDS (9.5-12.5) H 09/14/23 14:40 INR 1.48 09/14/23 14:40 Sodium 136 mEq/L (136-145) 09/15/23 02:42 Potassium 3.8 mEq/L (3.5-5.1) 09/15/23 02:42 BUN 26 mg/dL (7-18) H 09/15/23 02:42 Creatinine 1.02 mg/dL (0.55-1.02) 09/15/23 02:42 Glucose 185 mg/dL (74-106) H 09/15/23 02:42 Magnesium 2.4 mg/dL (1.6-2.4) 09/14/23 14:40 Total Bilirubin 0.5 mg/dL (0.2-1.0) 09/15/23 02:42 AST 16 U/L (15-37) 09/15/23 02:42 ALT 18 U/L (13-56) 09/15/23 02:42 Alkaline Phosphatase 74 U/L (45-117) 09/15/23 02:42 Home Medications: Amlodipine Besylate/Benazepril [Amlodipine-Benazepril 10-20 mg] 1 tab PO DAILY 11/17/21 Apixaban [Eliquis] 2.5 tab PO BID 11/17/21 Levothyroxine Sodium 1 tab PO DAILY 11/17/21 Metoprolol Succinate 1 tab PO DAILY 11/17/21 Amiodarone HCl [Pacerone] 200 mg PO BID 30 Days 09/17/23 Furosemide [Lasix*] 40 mg PO DAILY #30 tab 09/17/23 Nitrofuran Macro [Macrobid*] 100 mg PO BID 7 Days cap 09/17/23 Spironolactone 25 mg PO BID 30 Days #60 09/17/23 Spironolactone [Aldactone*] 25 mg PO BID 30 Days tab 09/17/23 New Medications: Spironolactone [Aldactone*] 25 mg PO BID 30 Days tab Furosemide [Lasix*] 40 mg PO DAILY #30 tab Nitrofuran Macro [Macrobid*] 100 mg PO BID 7 Days cap Amiodarone HCl [Pacerone] 200 mg PO BID 30 Days Spironolactone 25 mg PO BID 30 Days #60 Diet: HH Activity: Weight bearing as tolerated Followup: Forrest Rae MD [ACTIVE - CAN ADMIT] - 1 Week Butch Gao MD [Primary Care Provider] - 1-2 Weeks
[2023-09-17] MEDS ORDERED: AMIODARONE HCL 200 MG TAB PO ONE (18:04)
== END 2023-09-17 19:00 | disposition home or self-care (01) | DRG 291 ==
LOC: ER 13:32 → ERHOLD 17:22 → 2ND 18:18
PROVIDERS: ADMIT Hospitalist; ATTEND Internal Medicine Nephrology
DX: I11.0 Hypertensive heart disease with heart failure (principal); I50.31 Acute diastolic (congestive) heart failure; J96.21 Acute and chronic respiratory failure with hypoxia; I48.20 Chronic atrial fibrillation, unspecified; J44.1 Chronic obstructive pulmonary disease with (acute) exacerbation; N39.0 Urinary tract infection, site not specified; E03.9 Hypothyroidism, unspecified; M19.90 Unspecified osteoarthritis, unspecified site; B96.20 Unspecified Escherichia coli [E. coli] as the cause of diseases classified elsewhere; Z88.2 Allergy status to sulfonamides; Z90.2 Acquired absence of lung [part of]; Z88.8 Allergy status to other drugs, medicaments and biological substances; Z79.01 Long term (current) use of anticoagulants; Z99.81 Dependence on supplemental oxygen; Z11.52 Encounter for screening for COVID-19; Z79.890 Hormone replacement therapy; Z79.899 Other long term (current) drug therapy
CPT/HCPCS: 36415; 71045; 80048; 80053; 80076; 81001; 83605; 83735; 83880; 84145; 84484; 85025; 85610; 87040; 87077; 87086; 87088; 87186; 87804; 87811; 93005; 93306; 96365; 96366; 96375; 99285; J0282; J0696; J1160; J1940; J2930; J3475; J7030; J7050; J7060; J7605; J7614; J7644

== ENCOUNTER → 2023-11-11 | Emergency (ER) | payer OTHER ==
[~2023-11-11] MED LIST: NA CHLORIDE 0.9% 500 ML ONE
--- OUTSIDE RECORDS SUMMARY | 2023-11-11 14:32 | XMS REPORT | Continuity of Care Document ---
Author Name Unknown Address [address] [place] [address] [address] th[address] Address [address] [facility] [address] [place] [address] Care Team Providers Care Organ Tuner Electronic Name Role Phone STEPHEN HWANG Attending Clinician Unavailable Payers Payer Name Policy Type Policy Number Effective Date Expirati on Date Source MEDICARE PART A \T\ B [id number] 2002 00:00:00 Allergies, Adverse Reactions, Alerts Allergy Name Allergy Type Status Severity Reaction(s) Onset Date Inactive Date Treating Clinician Comments Source NO KNOWN ALLERGIE S Drug Class Active [facility] Encounters Start Date/Time End Date/Time Encounter Type Admission Type Attending Clinicians Care Facility Care Department Encounter ID Source 2020-12-29 15:00:00 2020-12-29 15:00:00 Outpatient [facility] [id number] [facility] 2020-12-29 15:00:00 2020-12-29 15:00:00 Outpatient STEPHEN EID [facility] [id number] [facility]
[2023-11-11 15:18] LABS: Absolute Lymphocytes (CBC) 1.2 K/uL (0.7-4.9); Hematocrit 35.4 % (36.0-45.0); Lymphocytes % 11.6 % (15.3-44.8); MCV 91.6 fL (80-100); MPV 8.4 fL (7.6-11.3); Platelets 346 thou/uL (152-406); RBC Red Blood Cell Count 3.87 M/uL (3.86-4.86)
[2023-11-11 15:28] LABS: Specific Gravity 1.015 (1.005-1.030); Urine Bacteria <20 /HPF (<20); Urine Bilirubin NEGATIVE (Negative); Urine Blood Negative (Negative); Urine Clarity Turbid (Clear); Urine Color Yellow (Yellow); Urine Glucose NEGATIVE (Negative); Urine Mucus Slight /HPF (None Seen); Urine Protein NEGATIVE (Negative); Urine RBC <5 /HPF (None Seen); Urine Urobilinogen Normal (Normal); Urine pH 5.5 (5.0-7.0)
[2023-11-11 15:36] LABS: Albumin 3.2 g/dL (3.4-5.0); Bilirubin Direct 0.2 mg/dL (0-0.2); Bilirubin Indirect, Calculated 0.3 mg/dL (0.2-0.8); Bilirubin Total 0.5 mg/dL (0.2-1.0); Magnesium 2.5 mg/dL (1.6-2.4); Potassium 4.4 mEq/L (3.5-5.1); Protein, Total 7.8 g/dL (6.4-8.2); Troponin High Sensitivity 12.4 pg/mL (<58.9)
--- NOTE | 2023-11-11 15:58 | RAD REPORT ---
[facility] pm CLINICAL HISTORY: hypotension COMPARISON: Chest Single View dated 09/15/2023; Chest Single View dated 09/14/2023; Chest Pa And Lat (2 Views) dated 09/10/2022; Chest Single View dated 11/20/2021 TECHNIQUE: Portable AP view of the chest. FINDINGS: The lungs are apart from stable residual central interstitial opacities. Postsurgical sae nges in the left upper lung again seen. No pneumothorax or effusion. Stable cardiomegaly. Mediastinal contours are unremarkable. IMPRESSION: Stable mild central interstitial opacities, may reflect a degree of congestion.
--- NOTE | 2023-11-11 16:17 | ER ---
Nurse's Notes [facility] Name: Lena Martínez Age: 88 yrs Sex: Female : 1935 Arrival Date: 11/11/2023 Time: 14:30 Bed 19 Private MD: Diagnosis: Hypotension, unspecified;Elevated creatinine Presentation: 11/11 14:59 Chief complaint: Patient states: she was at Dr. Rae's office, where her blood ap3 pressure was reportedly low, and the patient states she was feeling dizzy. patient reports on arrival to the ER her dizziness has improved, but she doesn't feel back to her baseline. Coronavirus screen: At this time, the client does not indicate any symptoms associated with coronavirus-19. Ebola Screen: No symptoms or risks identified at this time. Initial Sepsis Screen: Does the patient meet any 2 criteria? No. Patient's initial sepsis screen is negative. Does the patient have a suspected source of infection? No. Patient's initial sepsis screen is negative. Risk Assessment: Do you want to hurt yourself or someone else? Patient reports no desire to harm self or others. Onset of symptoms was November 11, 2023. 14:59 Method Of Arrival: Wheelchair ap3 14:59 Acuity: АННА 3 ap3 Triage Assessment: 15:01 General: Appears in no apparent distress. Behavior is calm, cooperative, appropriate ap3 for age. Pain: Denies pain. Neuro: Level of Consciousness is awake, alert, obeys commands, Oriented to person, place, time, situation, Appropriate for age Reports dizziness. Cardiovascular: Patient's skin is warm and dry. Respiratory: Airway is patent Respiratory effort is even, unlabored, Respiratory pattern is regular, symmetrical, wears home oxygen. Historical: - Allergies: 15:00 GABAPENTIN; ap3 15:00 Lyrica; ap3 15:00 Sulfa (Sulfonamide Antibiotics); ap3 - PMHx: 15:00 Atrial fibrillation; Home Oxygen (Atrial fibrillation); Congestive heart failure; ap3 - Immunization history:: Client reports receiving the 2nd dose of the Covid vaccine. - Social history:: Smoking status: Patient denies any tobacco usage or history of. - Family history:: not pertinent. Screenin:02 Abuse screen: Denies threats or abuse. Nutritional screening: No deficits noted. ap3 Tuberculosis screening: No symptoms or risk factors identified. 17:00 [facility] ED Fall Risk Assessment (Adult) History of falling in the last 3 months, cp4 including since admission No falls in past 3 months (0 pts) Confusion or Disorientation No (0 pts) Intoxicated or Sedated No (0 pts) Impaired Gait No (0 pts) Mobility Assist Device Used Yes (1 pt) Altered Elimination No (0 pt) Score/Fall Risk Level 0 - 2 = Low Risk Oriented to surroundings, Maintained a safe environment, Educated pt \T\ family on fall prevention, incl call for assistance when getting out of bed, Assessed \T\ reinforced patient's understanding of fall precautions, Provided non-skid footwear, Hourly rounding (assess needs \T\ fall precautionary measures) done. Vital Signs: 14:59 BP 145 / 74; Pulse 88; Resp 17; Pulse Ox 99% on 2 lpm NC; Weight 83.91 kg; ap3 15:00 BP 154 / 61; Pulse 64; Resp 18; Pulse Ox 99% ; cp4 16:00 BP 166 / 91; Pulse 63; Resp 18; Pulse Ox 98% ; cp4 ED Course: 14:34 Patient arrived in ED. ae5 14:39 Eliseo Grady MD is Attending Physician. rt 15:00 Sonia Osuna is Primary Nurse. cp4 15:00 Triage completed. ap3 15:02 Arm band placed on right wrist. ap3 15:02 Patient has correct armband on for positive identification. Placed in gown. Call light ap3 in reach. Side rails up X 1. Adult w/ patient. 15:18 [facility]AM Sent. cp4 15:23 XRAY Chest (1 view) In Process Unspecified. EDMS 16:15 Forrest Rae MD is Referral Physician. rt 17:00 Provided Education on: hypotension. cp4 17:00 No provider procedures requiring assistance completed. intact, bleeding controlled, No cp4 redness/swelling at site. Pressure dressing applied. Administered Medications: 16:20 Drug: NS 0.9% IV 500 ml IV at bolus once Route: IV; Rate: bolus; Site: right cp4 antecubital; 17:00 Follow up: Response: No adverse reaction; IV Status: Completed infusion cp4 Medication: 17:00 VIS not applicable for this client. cp4 Outcome: 16:16 Discharge ordered by . rt 17:00 Discharged to home via wheelchair, cp4 17:00 Condition: stable 17:00 Discharge instructions given to patient, Instructed on discharge instructions, follow up and referral plans. Demonstrated understanding of instructions, follow-up care, 17:06 Patient left the ED. cp4 Signatures: Dispatcher [employer] Jing Rosales RN RN ap3 Eliseo Grady MD MD rt Potter, Christina cp4 Andreia Zhu ae5
--- NOTE | 2023-11-11 16:17 | EDPHYS ---
Physician Documentation [facility] Name: Lena Martínez Age: 88 yrs Sex: Female : 1935 Arrival Date: 11/11/2023 Time: 14:30 Bed 19 Private MD: ED Physician Eliseo Grady HPI: 11/11 15:17 This 88 yrs old Female presents to ER via Wheelchair with complaints of Low BP. rt 15:17 Patient with history of A-fib, CHF presents to the ED with dizziness, reported rt hypotension in street sweeper operator office. Blood pressure was reportedly in the 90s systolic. She was dizzy, described as lightheaded at that time. She states that her symptoms have improved, she is was back to baseline currently. Denies other acute complaints, symptoms are moderate in severity, no other aggravating or alleviating factors.. Historical: - Allergies: 15:00 GABAPENTIN; ap3 15:00 Lyrica; ap3 15:00 Sulfa (Sulfonamide Antibiotics); ap3 - PMHx: 15:00 Atrial fibrillation; Home Oxygen (Atrial fibrillation); Congestive heart failure; ap3 - Immunization history:: Client reports receiving the 2nd dose of the Covid vaccine. - Social history:: Smoking status: Patient denies any tobacco usage or history of. - Family history:: not pertinent. ROS: 15:17 Constitutional: Negative for fever, chills, and weight loss, Cardiovascular: Negative rt for chest pain, palpitations, and edema, Respiratory: Negative for shortness of breath, cough, wheezing, and pleuritic chest pain, Abdomen/GI: Negative for abdominal pain, nausea, vomiting, diarrhea, and constipation, MS/Extremity: Negative for injury and deformity, Skin: Negative for injury, rash, and discoloration, Psych: Negative for depression, anxiety, suicide ideation, homicidal ideation, and hallucinations, 15:17 Neuro: Positive for dizziness, Negative for syncope, Exam: 15:17 Constitutional: This is a well developed, well nourished patient who is awake, alert, rt and in no acute distress. Head/Face: Normocephalic, atraumatic. Chest/axilla: Normal chest wall appearance and motion. Nontender with no deformity. No lesions are appreciated. Cardiovascular: Regular rate and rhythm with a normal S1 and S2. No gallops, murmurs, or rubs. Normal PMI, no JVD. No pulse deficits. Respiratory: Lungs have equal breath sounds bilaterally, clear to auscultation and percussion. No rales, rhonchi or wheezes noted. No increased work of breathing, no retractions or nasal flaring. Abdomen/GI: Soft, non-tender, with normal bowel sounds. No distension or tympany. No guarding or rebound. No evidence of tenderness throughout. Skin: Warm, dry with normal turgor. Normal color with no rashes, no lesions, and no evidence of cellulitis. MS/ Extremity: Pulses equal, no cyanosis. Neurovascular intact. Full, normal range of motion. Neuro: Awake and alert, GCS 15, oriented to person, place, time, and situation. Cranial nerves II-XII grossly intact. Motor strength 5/5 in all extremities. Sensory grossly intact. Cerebellar exam normal. Normal gait. Psych: Awake, alert, with orientation to person, place and time. Behavior, mood, and affect are within normal limits. 16:17 ECG was reviewed by the Attending Physician. rt Vital Signs: 14:59 BP 145 / 74; Pulse 88; Resp 17; Pulse Ox 99% on 2 lpm NC; Weight 83.91 kg; ap3 15:00 BP 154 / 61; Pulse 64; Resp 18; Pulse Ox 99% ; cp4 16:00 BP 166 / 91; Pulse 63; Resp 18; Pulse Ox 98% ; cp4 MDM: 14:51 Patient medically screened. rt 16:17 Differential Diagnosis Infection, dehydration, dysrhythmia, anemia. Data reviewed: rt vital signs, nurses notes. Consideration of Admission/Observation Escalation of care including admission/observation considered. After discussion with patient's street sweeper operator, will give a small bolus of fluids, have patient follow-up as an outpatient.. Management of patient was discussed with the following: Stencil Inspector: Discussed with patient's street sweeper operator, recommends giving small bolus of fluids, 500 cc, due to elevated creatinine, will follow-up patient as an outpatient.. I considered the following discharge prescriptions or medication management in the emergency department Medications were administered in the Emergency Department. See MAR. Care significantly affected by the following chronic conditions: Atrial fibrillation, CHF. Counseling: I had a detailed discussion with the patient and/or guardian regarding the historical points, exam findings, and any diagnostic results supporting the discharge/admit diagnosis, lab results, radiology results, the need for outpatient follow up, to return to the emergency department if symptoms worsen or persist or if there are any questions or concerns that arise at home. Response to treatment: the patient's symptoms have markedly improved after treatment. 11/11 15:00 Order name: Basic Metabolic Panel; Complete Time: 15:37 rt 11/11 15:00 Order name: CBC with Diff; Complete Time: 15:37 rt 11/11 15:00 Order name: LFT's; Complete Time: 15:37 rt 11/11 15:00 Order name: Magnesium; Complete Time: 15:37 rt 11/11 15:00 Order name: NT PRO-BNP; Complete Time: 15:37 rt 11/11 15:00 Order name: Troponin HS; Complete Time: 15: rt 11/11 15:00 Order name: UAM; Complete Time: 15:37 rt 11/11 15:00 Order name: XRAY Chest (1 view); Complete Time: 15: rt 11/11 15:00 Order name: EKG; Complete Time: 15: rt 11/11 15:00 Order name: Cardiac monitoring; Complete Time: 15: rt 11/11 15:00 Order name: EKG - Nurse/Tech; Complete Time: 15: rt 11/11 15:00 Order name: IV Saline Lock; Complete Time: 15: rt 11/11 15:00 Order name: Labs collected and sent; Complete Time: 15: rt 11/11 15:00 Order name: O2 Per Protocol; Complete Time: 15: rt 11/11 15:00 Order name: O2 Sat Monitoring; Complete Time: 15:17 rt EC:17 Rate is 73 beats/min. Rhythm is irregularly irregular, A fib with Nonspecific ST-T wave rt changes. QRS interval is normal. QT interval is prolonged at 504 msec. No Q waves. Administered Medications: 16:20 Drug: NS 0.9% IV 500 ml IV at bolus once Route: IV; Rate: bolus; Site: right cp4 antecubital; 17:00 Follow up: Response: No adverse reaction; IV Status: Completed infusion cp4 Disposition Summary: 11/11/23 16:16 Discharge Ordered Notes: Location: Home rt Problem: new rt Symptoms: are resolved rt Condition: Stable rt Diagnosis - Hypotension, unspecified rt - Elevated creatinine rt Followup: rt - With: Forrest Rae MD - When: 2 - 3 days - Reason: Discharge Instructions: - Discharge Summary Sheet rt - Hypotension rt - Serum Creatinine Test rt Forms: - Medication Reconciliation Form rt - Thank You Letter rt - Antibiotic Education rt - Prescription Opioid Use rt - Patient Portal Instructions rt - Leadership Thank You Letter rt Signatures: Dispatcher [employer] Jing Rosales RN RN ap3 Eliseo Grady MD MD rt Sonia Osuna cp4
[2023-11-11 18:08] VITALS: BP 166/91; O2SAT 98
== END ==
LOC: ER 14:30
DX: I95.9 Hypotension, unspecified (principal); R79.89 Other specified abnormal findings of blood chemistry; I50.9 Heart failure, unspecified; I48.91 Unspecified atrial fibrillation; Z88.2 Allergy status to sulfonamides; Z88.8 Allergy status to other drugs, medicaments and biological substances
CPT/HCPCS: 93005; 85025; 81001; 80048; 36415; 83735; 80076; 84484; 83880; 71045; 96360; 99284; J7040

== ENCOUNTER 2025-03-18 16:11 | Emergency (ER) | payer OTHER ==
[2025-03-18] MEDS ORDERED: METOPROLOL TAR 50 MG TAB ONE (17:13)
--- NOTE | 2025-03-18 18:22 | EDPHYS ---
Physician Documentation [facility] Name: Lena Martínez Age: 89 yrs Sex: Female : 1935 Arrival Date: 03/18/2025 Time: 16:11 Bed 7 Private MD: ED Physician Mohsen Rojas HPI: 03/18 17:10 This 89 yrs old Female presents to ER via Wheelchair with complaints of Abnormal Lab ms3 Results. 17:10 This 89 yrs old Female presents to ER via Wheelchair with complaints of Abnormal EKG. ms3 17:10 89-year-old female with past medical history of atrial fibrillation, congestive heart ms3 failure, CKD presents to the emergency department from preop for atrial fibrillation with rapid ventricular rate that was detected on EKG. Patient's son states patient walked further than she typically does likely causing the increase in her heart rate. Patient notes she also did not take her metoprolol this morning.. Historical: - Allergies: 16:39 GABAPENTIN; aa5 16:39 Lyrica; aa5 16:39 Sulfa (Sulfonamide Antibiotics); aa5 - PMHx: 16:39 Atrial fibrillation; Congestive heart failure; Home Oxygen (Atrial fibrillation); aa5 16:39 Temporary Dialysis; Kidney failure; aa5 - PSHx: 16:39 Dialysis catheter; aa5 ROS: 17:10 Constitutional: Negative for fever, and chills. Cardiovascular: Negative for chest ms3 pain, and palpitations. Respiratory: Negative for shortness of breath, cough, wheezing, and pleuritic chest pain, Abdomen/GI: Negative for abdominal pain, nausea, vomiting, diarrhea, and constipation, MS/Extremity: Negative for injury and deformity, Skin: Negative for injury, rash, and discoloration, Exam: 17:10 Constitutional: This is a well developed, well nourished patient who is awake, alert, ms3 and in no acute distress. 17:10 Respiratory: Lungs have equal breath sounds bilaterally, clear to auscultation and percussion. No rales, rhonchi or wheezes noted. No increased work of breathing, no retractions or nasal flaring. Abdomen/GI: Soft, non-tender, with normal bowel sounds. No distension or tympany. No guarding or rebound. No evidence of tenderness throughout. Skin: Warm, dry with normal turgor. Normal color with no rashes, no lesions, and no evidence of cellulitis. 17:10 Cardiovascular: Rate: tachycardic, Rhythm: irregularly irregular, Pulses: no pulse deficits are appreciated, 17:12 ECG was reviewed by the Attending Physician. ms3 Vital Signs: 16:34 BP 149 / 94; Pulse 102; Resp 20 S; Temp 97.9(O); Pulse Ox 99% on 2 lpm NC; Weight 76.2 aa5 kg (R); Height 5 ft. 6 in. (R); 17:17 BP 142 / 95; Pulse 105; Resp 20; iw 17:30 BP 122 / 74; Pulse 94; Resp 20; Pulse Ox 100% on 3 lpm NC; iw 18:08 BP 136 / 100; Pulse 94; Resp 20 S; Pulse Ox 100% 3 lpm ; iw 18:22 BP 132 / 72; Pulse 82; Resp 16; Pulse Ox 100% on R/A; iw 16:34 Body Mass Index 27.12 (76.20 kg, 167.64 cm) aa5 MDM: 17:02 Medical Screening Exam initiated ms3 17:10 Differential diagnosis: arrythmia, Medication noncompliance this morning versus atrial ms3 fibrillation RVR. 17:12 ED course: Discussed obtaining labs and imaging with patient and her son. And they ms3 declined at this time. Will give patient her home dose of metoprolol and reevaluate.. 18:25 Data reviewed: vital signs, nurses notes, EKG, and as a result, I will discharge ms3 patient. Consideration of Admission/Observation Escalation of care including admission/observation considered. I considered the following discharge prescriptions or medication management in the emergency department Medications were administered in the Emergency Department. See MAR. Independent interpretation of the following test(s) in the Emergency Department EKG: See my EKG interpretation above phototypesetting equipment monitor: rate is 84 beats/min, Rhythm is atrial fibrillation, with no ectopy, Interpretation: normal rate, atrial fibrillation. Counseling: I had a detailed discussion with the patient and/or guardian regarding the historical points, exam findings, and any diagnostic results supporting the discharge/admit diagnosis, the need for outpatient follow up, to return to the emergency department if symptoms worsen or persist or if there are any questions or concerns that arise at home. ED course: On reevaluation hospital monitor showing atrial fibrillation with a heart rate of 84. Patient states she remains asymptomatic. Patient to follow-up with her sample mounter in 2 to 3 days. All questions were answered. Return precautions discussed include worsening symptoms, or any other concerns. 19:20 Test considered but Not performed: Labs: Outpatient labs were reviewed. External ms3 Records Reviewed: Outpatient labs: Outpatient labs drawn prior to coming to the emergency department. CBC: White blood count 7.2, hemoglobin 12.1, hematocrit 37.5, platelet count 219. PT 15.1, INR 1.34, APTT 33.2. Chemistry: Sodium 137, potassium 3.9, chloride 100, carbon dioxide 35, BUN 76, creatinine 1.44, glucose 97, calcium 9.7. 03/18 17:03 Order name: EKG; Complete Time: 17:03 ms3 03/18 16:54 Order name: EKG - Nurse/Tech; Complete Time: 16:54 aa5 03/18 17:03 Order name: Cardiac monitoring; Complete Time: 17:05 ms3 03/18 17:03 Order name: O2 Per Protocol; Complete Time: 17:05 ms3 03/18 17:03 Order name: O2 Sat Monitoring; Complete Time: 17:05 ms3 EC:12 Rate is 110 beats/min. Rhythm is irregularly irregular. QRS [place] is Normal. QRS ms3 interval is normal. Clinical impression: Atrial Fibrillation and with RVR. Interpreted by me. Reviewed by me. Administered Medications: 17:08 CANCELLED (Physician Discretion): metoprolol5 mg IVP every 5 minutes; Hold for SBP < ms3 100 or HR < 60. x3 17:17 Drug: Metoprolol PO 100 mg PO once Route: PO; iw 18:09 Follow up: Response: No adverse reaction iw Disposition Summary: 03/18/25 18:21 Discharge Ordered Notes: Location: Home ms3 Condition: Stable ms3 Diagnosis - Unspecified atrial fibrillation ms3 Followup: ms3 - With: Private Physician - When: 2 - 3 days - Reason: Recheck today's complaints Discharge Instructions: - Discharge Summary Sheet ms3 - Atrial Fibrillation ms3 Forms: - Medication Reconciliation Form ms3 - Antibiotic Education ms3 - Prescription Opioid Use ms3 - Patient Portal Instructions ms3 - Leadership Thank You Letter ms3 Signatures: Dispatcher [employer] Abigail Adams RN RN iw Lucero Schultz RN RN aa5 Crystal, Mohsen, DO DO ms3 Corrections: (The following items were deleted from the chart) 17:06 17:03 Chest Single View+RAD.RAD.BRZ ordered. EDMS EDMS 17:08 17:03 Metoprolol IVP 5 mg IVP every 5 minutes; Hold for SBP < 100 or HR < 60. x3 ms3 ordered. ms3 17:10 17:03 IV Saline Lock ordered. ms3 iw 17:11 17:03 Labs collected and sent ordered. ms3 iw 17:12 17:03 BASIC METABOLIC PANEL+C.LAB.BRZ ordered. EDMS EDMS 17:12 17:03 CBC+H.LAB.BRZ ordered. EDMS EDMS 17:12 17:03 Troponin High Sensitivity+C.LAB.BRZ ordered. EDMS EDMS 19:20 17:12 ED course: Discussed obtaining labs and imaging with patient and her son. And ms3 they declined at this time. Will give patient her home dose of metoprolol and reevaluate.. ms3
--- NOTE | 2025-03-18 18:22 | ER ---
Nurse's Notes [facility] Name: Lena Martínez Age: 89 yrs Sex: Female : 1935 Arrival Date: 03/18/2025 Time: 16:11 Bed 7 Private MD: Diagnosis: Unspecified atrial fibrillation Presentation: 03/18 16:34 Chief complaint: Patient states: seen for pre-op today and sent here for abnormal EKG, aa5 A-fib with RVR at 109bpm. Pt states "I am scheduled to get this port (dialysis catheter) out next Friday". 16:34 Coronavirus screen: At this time, the client does not indicate any symptoms associated aa5 with coronavirus-19. Ebola Screen: Patient denies travel to an Ebola-affected area in the 21 days before illness onset. Initial Sepsis Screen: Does the patient meet any 2 criteria? HR > 90 bpm. Does the patient have a suspected source of infection? No. Patient's initial sepsis screen is negative. Risk Assessment: Do you want to hurt yourself or someone else? Patient reports no desire to harm self or others. Onset of symptoms was March 18, 2025. 16:34 Acuity: АННА 3 aa5 16:34 Method Of Arrival: Wheelchair aa5 Historical: - Allergies: 16:39 GABAPENTIN; aa5 16:39 Lyrica; aa5 16:39 Sulfa (Sulfonamide Antibiotics); aa5 - PMHx: 16:39 Atrial fibrillation; Congestive heart failure; Home Oxygen (Atrial fibrillation); aa5 16:39 Temporary Dialysis; Kidney failure; aa5 - PSHx: 16:39 Dialysis catheter; aa5 Screenin:08 Abuse screen: Denies threats or abuse. Denies injuries from another. Nutritional iw screening: No deficits noted. Tuberculosis screening: No symptoms or risk factors identified. 18:37 [facility] ED Fall Risk Assessment (Adult) History of falling in the last 3 months, iw including since admission No falls in past 3 months (0 pts) Confusion or Disorientation No (0 pts) Intoxicated or Sedated No (0 pts) Impaired Gait No (0 pts) Mobility Assist Device Used No (0 pt) Altered Elimination No (0 pt) Score/Fall Risk Level 0 - 2 = Low Risk Oriented to surroundings, Maintained a safe environment. Assessment: 17:08 Reassessment: Patient appears in no apparent distress at this time. Patient and/or iw family updated on plan of care and expected duration. Pain level reassessed. Patient is alert, oriented x 3, equal unlabored respirations, skin warm/dry/pink. 18:37 Reassessment: Patient appears in no apparent distress at this time. Patient and/or iw family updated on plan of care and expected duration. Pain level reassessed. Patient is alert, oriented x 3, equal unlabored respirations, skin warm/dry/pink. Vital Signs: 16:34 BP 149 / 94; Pulse 102; Resp 20 S; Temp 97.9(O); Pulse Ox 99% on 2 lpm NC; Weight 76.2 aa5 kg (R); Height 5 ft. 6 in. (R); 17:17 BP 142 / 95; Pulse 105; Resp 20; iw 17:30 BP 122 / 74; Pulse 94; Resp 20; Pulse Ox 100% on 3 lpm NC; iw 18:08 BP 136 / 100; Pulse 94; Resp 20 S; Pulse Ox 100% 3 lpm ; iw 18:22 BP 132 / 72; Pulse 82; Resp 16; Pulse Ox 100% on R/A; iw 16:34 Body Mass Index 27.12 (76.20 kg, 167.64 cm) aa5 ED Course: 16:14 Patient arrived in ED. cj3 16:22 Mohsen Rojas DO is Attending Physician. ms3 16:34 Arm band placed on. aa5 16:35 Patient has correct armband on for positive identification. iw 16:41 Abigail Godfrey, RN is Primary Nurse. iw 16:52 EKG done, by ED staff, reviewed by Mohsen Rojas DO. em1 16:53 Triage completed. aa5 18:22 No provider procedures requiring assistance completed. Patient did not have IV access iw during this emergency room visit. Administered Medications: 17:08 CANCELLED (Physician Discretion): metoprolol5 mg IVP every 5 minutes; Hold for SBP < ms3 100 or HR < 60. x3 17:17 Drug: Metoprolol PO 100 mg PO once Route: PO; iw 18:09 Follow up: Response: No adverse reaction iw Medication: 18:09 VIS not applicable for this client. iw Outcome: 18:21 Discharge ordered by . ms3 18:37 Discharged to home via wheelchair, with family, iw 18:37 Condition: good 18:37 Discharge instructions given to patient, family, Instructed on discharge instructions, follow up and referral plans. 18:38 Patient left the ED. iw Signatures: Abigail Godfrey, RN RN Wilson Sullivan em1 Lucero Shcultz RN RN aa5 Mohsen Rojas DO DO ms3 Rola Jensen cj3 Corrections: (The following items were deleted from the chart) 16:53 16:39 Arm band placed on aa5 aa5
[2025-03-18 18:54] VITALS: TEMP 97.9
[2025-03-18 18:57] VITALS: O2SAT 100
[2025-03-18 18:59] VITALS: BP 132/72
--- NOTE | 2025-03-22 12:30 | EKG ---
Test Date: 2025-03-18 Test Time: 15:35:44 Live In Companion: HEATH MEASUREMENT RESULTS: Intervals: Rate: 106 TN: QRSD: 90 QT: 376 QTc: 499 [place]: P: TN: QRS: 75 T: 255 INTERPRETIVE STATEMENTS: Atrial fibrillation with rapid ventricular response with premature ventricular or aberrantly conducted complexes ST & T wave abnormality, consider inferior ischemia or digitalis effect ST & T wave abnormality, consider anterolateral ischemia or digitalis effect Abnormal ECG Compared to ECG 11/11/2023 15:36:43 Ventricular premature complex(es) now present Prolonged QT interval no longer present ST (T wave) deviation still present Possible ischemia still present Electronically Signed On 03-22-25 12:23:45 CDT by Kuldip Blakely
== END 2025-03-18 18:38 | disposition home or self-care (01) ==
LOC: ER 16:11
DX: I48.91 Unspecified atrial fibrillation (principal)
CPT/HCPCS: 93005; 99284

== ENCOUNTER 2025-03-23 06:27 | Day surgery (SDC) | payer OTHER ==
[2025-03-18 15:59] LABS: Absolute Basophils 0.1 K/uL (0-0.5); Absolute Eosinophils 0.2 K/uL (0-0.5); Absolute Lymphocytes (CBC) 0.8 K/uL (0.7-4.9); Absolute Monocytes 0.9 K/uL (0.1-1.3); Absolute Neutrophil 5.2 K/uL (1.8-8.0); Basophils % 1.2 % (0-1.3); Eosinophils % 2.8 % (0-4.4); Hematocrit 37.5 % (36.0-45.0); Hemoglobin 12.1 g/dL (12.0-15.0); Lymphocytes % 11.1 % (15.3-44.8); MCH 27.9 pg (27.0-35.0); MCHC 32.3 g/dL (32.0-36.0); MCV 86.5 fL (80-100); MPV 8.7 fL (7.6-11.3); Monocytes % 12.8 % (3.3-12.3); Neutrophils % 72.1 % (41.7-73.7); Nucleated Red Blood Cells % 0.1 % (0-0); Platelets 219 thou/uL (152-406); RBC Red Blood Cell Count 4.33 M/uL (3.86-4.86); Red Cell Distribution Width 16.2 % (12.1-15.2)
[2025-03-18 16:05] LABS: PT Prothrombin Time 15.1 SECONDS (10-13.0); PTT, Activated Partial Thromb 33.2 SECONDS (27.2-37.4); Protime INR 1.34
--- NOTE | 2025-03-18 16:08 | RAD REPORT ---
EXAMINATION: TWO VIEW CHEST XR CLINICAL INDICATION: pre op for day surgery TECHNIQUE: 2 views of the chest was performed. COMPARISON: 11/11/2023 FINDINGS: The lungs are emphysematous but clear. The heart is moderately enlarged. Diffuse osteopenia is seen. Right-sided venous catheter is tip in the SVC. Stent is present as well.
[2025-03-18 16:09] LABS: Anion Gap 5.9 mEq/L (5.0-15.0); Potassium 3.9 mEq/L (3.5-5.1)
--- NOTE | 2025-03-22 12:30 | EKG ---
Test Date: 2025-03-18 Test Time: 16:48:59 Development Coordinator: CECILLE MEASUREMENT RESULTS: Intervals: Rate: 110 CO: QRSD: 86 QT: 344 QTc: 465 Max: P: CO: QRS: 51 T: 221 INTERPRETIVE STATEMENTS: Atrial fibrillation with rapid ventricular response Posterior infarct, age undetermined ST & T wave abnormality, consider inferolateral ischemia Abnormal ECG Compared to ECG 03/18/2025 15:36:10 Myocardial infarct finding now present Possible ischemia now present ST (T wave) deviation still present Electronically Signed On 03-22-25 12:23:33 CDT by Kuldip Blakely
[2025-03-23] MEDS ORDERED: SUCCINYLCHOLINE 20 MG/ML (10 ML) IV ONE (07:09)
[2025-03-23] MEDS ORDERED: propofoL 200 MG/20 ML VIAL IV ONE (07:13)
[2025-03-23] MEDS ORDERED: ONDANSETRON 4 MG/2 ML VIAL ONE (07:13)
[2025-03-23] MEDS ORDERED: LIDOCAINE 2% MPF 5 ML VIAL ONE (07:13)
[2025-03-23] MEDS: Ringers Lactate 500 ML IV ONE (07:36)
[2025-03-23] MEDS ORDERED: FENTANYL CITR 100 MCG/2 ML ONE (07:45)
[2025-03-23] MEDS: CEFAZOLIN SODIUM 1 GM/VIAL ONE (07:48)
[2025-03-23] MEDS: BUPIVACAINE 0.5% PF 10 ML VIAL ONE (07:55)
--- NOTE | 2025-03-23 08:06 | P.BOP ---
Preoperative diagnosis: renal insufficiency Postoperative diagnosis: same Primary procedure: REmoval of cuffed hemodyalisis catheter Estimated blood loss: <5cc Specimen: cath Findings: cath intact Anesthesia: MAC Complications: None Transferred to: Recovery Room Condition: Good
[2025-03-23 09:34] VITALS: BP 107/41; TEMP 97.8; O2SAT 96
--- NOTE | 2025-03-23 11:18 | EKG ---
Test Date: 2025-03-18 Test Time: 15:36:10 Tubing Tester: HEATH MEASUREMENT RESULTS: Intervals: Rate: 111 AK: QRSD: 88 QT: 382 QTc: 519 [place]: P: AK: QRS: 75 T: 235 INTERPRETIVE STATEMENTS: Atrial fibrillation with rapid ventricular response Marked ST abnormality, possible inferior subendocardial injury Abnormal ECG Compared to ECG 03/18/2025 15:35:44 Ventricular premature complex(es) no longer present Possible ischemia no longer present ST (T wave) deviation still present Electronically Signed On 03-23-25 11:14:34 CDT by Kuldip Blakely
== END 2025-03-23 09:15 | disposition home or self-care (01) ==
LOC: OR 06:27
PROVIDERS: ATTEND Surgery
PROC: 0WPG03Z Removal of Infusion Device from Peritoneal Cavity, Open Approach (ICD-10-PCS; principal; 2025-03-23 07:30)
DX: N18.6 End stage renal disease (principal); Z49.02 Encounter for fitting and adjustment of peritoneal dialysis catheter
CPT/HCPCS: 93005 ×2; 85025; 80048; 36415; 85610; 88300; 85730; 71046; 36589; J2704; J2003; J3010; J2405; J0690